=== PATIENT | male | born 1955 | race Caucasian/White ===

== ENCOUNTER 2018-05-02 04:14 | Emergency (ER) | payer OTHER ==
[2018-05-02 04:57] LABS: ADD MAN DIFF? NO
[2018-05-02 05:00] LABS: BASOPHIL # 0.2 10^3/ul (0.0-0.1); BASOPHILS % 2.1 % (0.0-2.0); EOSINOPHILS # 0.4 10^3/ul (0.0-0.5); EOSINOPHILS % 5.5 % (0.0-7.0); HEMATOCRIT 33.1 % (42.0-52.0); LYMPHOCYTES # 1.7 10^3/ul (0.8-2.9); LYMPHOCYTES % 22.7 % (15.0-51.0); MEAN CORPUSCULAR HEMOGLOBIN 27.6 pg (29.0-33.0); MEAN CORPUSCULAR HGB CONC 33.2 g/dl (32.0-37.0); MEAN PLATELET VOLUME 8.8 fl (7.4-10.4); MONOCYTE # 0.6 10^3/ul (0.3-0.9); MONOCYTES % 8.1 % (0.0-11.0); NEUTROPHIL # 4.6 10^3/ul (1.6-7.5); NEUTROPHILS % 61.2 % (39.0-77.0); PLATELET COUNT 304 10^3/UL (140-415); RED BLOOD COUNT 3.99 10^6/ul (4.70-6.10); RED CELL DISTRIBUTION WIDTH 14.5 % (11.5-14.5)
[2018-05-02 05:00] LABS: WHITE BLOOD COUNT 7.6 10^3/ul (4.8-10.8)
[2018-05-02] MEDS: NITROGLYCERIN 2% 1 GM OINT PKT TD (05:03)
[2018-05-02 05:19] LABS: ALANINE AMINOTRANSFERASE 30 IU/L (13-69); ALBUMIN 3.3 g/dl (3.3-4.9); ALKALINE PHOSPHATASE 112 IU/L (42-121); ANION GAP 15 (8-16); ASPARTATE AMINO TRANSFERASE 21 IU/L (15-46); BILIRUBIN,INDIRECT 0.4 mg/dl (0-1.1); BILIRUBIN,TOTAL 0.4 mg/dl (0.2-1.3); BLOOD UREA NITROGEN 42 mg/dl (7-20); CARBON DIOXIDE 21 mmol/L (21-31); CHLORIDE 114 mmol/L (97-110); CREATININE 2.06 mg/dl (0.61-1.24); GLUCOSE 191 mg/dl (70-220); INR 0.96; PROTIME 12.9 Sec (11.9-14.9); SODIUM 145 mmol/L (135-144); TOTAL PROTEIN 6.6 g/dl (6.1-8.1)
[2018-05-02 05:20] LABS: PARTIAL THROMBOPLASTIN TIME 30.3 Sec (23.0-35.0)
[2018-05-02 05:30] LABS: B-TYPE NATRIURETIC PEPTIDE 1200 PG/ML (0-125); TROPONIN-I 0.013 ng/ml (0.000-0.120)
[2018-05-02] MEDS: ASPIRIN 81 MG TAB PO (06:28)
== END 2018-05-02 09:20 | disposition short-term general hospital (02) ==
LOC: E/R 04:14
DX: R07.9 Chest pain, unspecified (principal); I10 Essential (primary) hypertension; I25.10 Atherosclerotic heart disease of native coronary artery without angina pectoris; E11.9 Type 2 diabetes mellitus without complications; Z79.01 Long term (current) use of anticoagulants; Z79.4 Long term (current) use of insulin
CPT/HCPCS: 36415; 71045; 80053; 82962; 83880; 84484; 85025; 85610; 85730; 93005; 99285-25

== ENCOUNTER 2018-09-11 06:45 | Inpatient (IN) | payer OTHER ==
[2018-09-11 08:40] LABS: ANION GAP 9 (5-13); CALCIUM 9.5 mg/dl (8.4-10.2); CARBON DIOXIDE 23 mmol/L (21-31); CHLORIDE 107 mmol/L (97-110); Estimated GFR 31 mL/min (>60); SODIUM 139 mmol/L (135-144)
[2018-09-11 08:42] LABS: BLOOD UREA NITROGEN 59 mg/dl (7-20); CREATININE 2.13 mg/dl (0.61-1.24); GLUCOSE 223 mg/dl (70-220); POTASSIUM 5.2 mmol/L (3.5-5.1)
[2018-09-11] MEDS ORDERED: LIDOCAINE 1% (MDV) 20 ML INJ (08:57)
[2018-09-11] MEDS ORDERED: ALBUTEROL HFA 8 GM INHALER (08:58)
[2018-09-11] MEDS ORDERED: NITROGLYCERIN (IC) 100 MCG/ML INJ (08:58)
[2018-09-11] MEDS ORDERED: HEPARIN 1000 UNITS/ML 10 ML INJ (08:58)
[2018-09-11] MEDS ORDERED: IODIXANOL LOCM 100 ML BTL (08:58)
[2018-09-11] MEDS ORDERED: VERAPAMIL 5 MG INJ (08:58)
[2018-09-11] MEDS ORDERED: MIDAZOLAM 1 MG/ML 2 ML INJ (08:58)
[2018-09-11] MEDS ORDERED: FENTAnyl 50 MCG/ML VIAL (08:58)
[2018-09-11] MEDS ORDERED: ZOLPIDEM 5 MG TAB PO (10:30)
[2018-09-11] MEDS ORDERED: ACETAMINOPHEN 325 MG TAB PO (10:30)
[2018-09-11] MEDS ORDERED: AL HYDROX/MG HYDROX/SIMETH 30 ML CUP PO (10:30)
[2018-09-11] MEDS ORDERED: ONDANSETRON 4 MG INJ IV (10:30)
[2018-09-11] MEDS ORDERED: morphine 2 MG INJ IV (10:30)
[2018-09-11] MEDS: SOD CHLORIDE 0.9% 1,000 ML IV (10:48)
[2018-09-11] MEDS ORDERED: GLUCAGON 1 MG INJ IM (13:30)
[2018-09-11] MEDS ORDERED: GLUCOSE GEL 15 GRAM TUBE BUCCAL (13:30)
[2018-09-11] MEDS ORDERED: DEXTROSE 50% 50 ML SYRINGE IV ×2 (13:30)
[2018-09-11] MEDS ORDERED: GLUCOSE GEL 15 GRAM TUBE PO ×2 (13:30)
[2018-09-11] MEDS: INSULIN ASPART [NOVOLOG] 3 ML PEN SC ×2 (18:27→20:16)
[2018-09-11] MEDS: ATORVASTATIN 20 MG TAB PO (20:10)
[2018-09-12] MEDS: ACCU-CHEK XX (01:32)
[2018-09-12] MEDS: INSULIN ASPART [NOVOLOG] 3 ML PEN SC ×5 (02:06→20:38)
[2018-09-12 05:29] LABS: ADD MAN DIFF? NO
[2018-09-12 05:44] LABS: WHITE BLOOD COUNT 7.8 10^3/ul (4.8-10.8)
[2018-09-12 05:44] LABS: BASOPHIL # 0.1 10^3/ul (0.0-0.1); BASOPHILS % 1.4 % (0.0-2.0); EOSINOPHILS # 0.3 10^3/ul (0.0-0.5); EOSINOPHILS % 4.1 % (0.0-7.0); HEMATOCRIT 28.3 % (42.0-52.0); HEMOGLOBIN 9.4 g/dl (14.0-18.0); LYMPHOCYTES # 1.1 10^3/ul (0.8-2.9); LYMPHOCYTES % 13.5 % (15.0-51.0); MEAN CORPUSCULAR HEMOGLOBIN 27.8 pg (29.0-33.0); MEAN CORPUSCULAR HGB CONC 33.2 g/dl (32.0-37.0); MEAN CORPUSCULAR VOLUME 83.7 fl (82.0-101.0); MEAN PLATELET VOLUME 9.6 fl (7.4-10.4); MONOCYTE # 0.7 10^3/ul (0.3-0.9); MONOCYTES % 8.6 % (0.0-11.0); NEUTROPHIL # 5.6 10^3/ul (1.6-7.5); NEUTROPHILS % 72.1 % (39.0-77.0); PLATELET COUNT 278 10^3/UL (140-415); RED BLOOD COUNT 3.38 10^6/ul (4.70-6.10); RED CELL DISTRIBUTION WIDTH 14.5 % (11.5-14.5)
[2018-09-12 06:21] LABS: ANION GAP 4 (5-13); BLOOD UREA NITROGEN 49 mg/dl (7-20); CALCIUM 8.8 mg/dl (8.4-10.2); CARBON DIOXIDE 23 mmol/L (21-31); CHLORIDE 114 mmol/L (97-110); CREATININE 1.97 mg/dl (0.61-1.24); Estimated GFR 34 mL/min (>60); GLUCOSE 188 mg/dl (70-220); POTASSIUM 4.9 mmol/L (3.5-5.1); SODIUM 141 mmol/L (135-144)
[2018-09-12] MEDS: AMLODIPINE 10 MG TAB PO (08:21)
[2018-09-12] MEDS: ISOSORBIDE MONONITRATE(SR)30 MG TAB PO (08:21)
[2018-09-12] MEDS: ASPIRIN (EC) 81 MG TAB PO (08:22)
[2018-09-12] MEDS: ATORVASTATIN 20 MG TAB PO (20:37)
[2018-09-13] MEDS: ACCU-CHEK XX (01:09)
[2018-09-13] MEDS: INSULIN ASPART [NOVOLOG] 3 ML PEN SC ×4 (07:44→21:00)
[2018-09-13] MEDS: ISOSORBIDE MONONITRATE(SR)30 MG TAB PO (08:15)
[2018-09-13] MEDS: ASPIRIN (EC) 81 MG TAB PO (08:15)
[2018-09-13] MEDS: AMLODIPINE 10 MG TAB PO (08:16)
[2018-09-13] MEDS ORDERED: NITROGLYCERIN (IC) 100 MCG/ML INJ (08:43)
[2018-09-13] MEDS ORDERED: LIDOCAINE 1% (MDV) 20 ML INJ (08:43)
[2018-09-13] MEDS ORDERED: VERAPAMIL 5 MG INJ ×2 (08:43→11:32)
[2018-09-13] MEDS ORDERED: HEPARIN 1000 UNITS/ML 10 ML INJ (08:43)
[2018-09-13] MEDS ORDERED: IODIXANOL LOCM 100 ML BTL (08:43)
[2018-09-13] MEDS ORDERED: MIDAZOLAM 1 MG/ML 2 ML INJ (08:43)
[2018-09-13] MEDS ORDERED: FENTAnyl 50 MCG/ML VIAL (08:43)
[2018-09-13] MEDS ORDERED: SOD CHLORIDE 0.9% 500 ML (08:44)
[2018-09-13 09:48] LABS: ANION GAP 9 (5-13); BLOOD UREA NITROGEN 54 mg/dl (7-20); CALCIUM 9.1 mg/dl (8.4-10.2); CARBON DIOXIDE 22 mmol/L (21-31); CHLORIDE 111 mmol/L (97-110); CREATININE 2.23 mg/dl (0.61-1.24); Estimated GFR 30 mL/min (>60); GLUCOSE 174 mg/dl (70-220); SODIUM 142 mmol/L (135-144)
[2018-09-13] MEDS ORDERED: DOPamine-D5W 1.6 MG/ML 250 ML (10:44)
[2018-09-13] MEDS ORDERED: CLOPIDOGREL 300 MG TAB (11:11)
[2018-09-13] MEDS ORDERED: ASPIRIN 325 MG TAB (11:11)
[2018-09-13] MEDS ORDERED: BIVALIRUDIN 250MG /NS 50 ML 50 ML IVPB (11:32)
[2018-09-13] MEDS ORDERED: ACETAMINOPHEN 325 MG TAB PO (12:00)
[2018-09-13] MEDS ORDERED: AL HYDROX/MG HYDROX/SIMETH 30 ML CUP PO (12:00)
[2018-09-13] MEDS: OXYCODONE/ACETAMINOPHEN (5/325) TAB PO (12:53)
[2018-09-13] MEDS: SOD CHLORIDE 0.9% 1,000 ML IV (13:06)
[2018-09-13] MEDS ORDERED: ATROPINE 1 MG/10 ML SYRINGE IV (18:00)
[2018-09-13] MEDS: ATORVASTATIN 20 MG TAB PO (21:34)
[2018-09-14] MEDS: ACCU-CHEK XX (02:00)
[2018-09-14 05:12] LABS: ADD MAN DIFF? NO
[2018-09-14 05:20] LABS: BASOPHIL # 0.1 10^3/ul (0.0-0.1); BASOPHILS % 1.3 % (0.0-2.0); EOSINOPHILS # 0.3 10^3/ul (0.0-0.5); EOSINOPHILS % 4.2 % (0.0-7.0); HEMATOCRIT 25.9 % (42.0-52.0); HEMOGLOBIN 8.3 g/dl (14.0-18.0); LYMPHOCYTES # 1.1 10^3/ul (0.8-2.9); LYMPHOCYTES % 15.4 % (15.0-51.0); MEAN CORPUSCULAR HEMOGLOBIN 27.4 pg (29.0-33.0); MEAN CORPUSCULAR VOLUME 85.5 fl (82.0-101.0); MEAN PLATELET VOLUME 9.6 fl (7.4-10.4); MONOCYTE # 0.7 10^3/ul (0.3-0.9); MONOCYTES % 9.5 % (0.0-11.0); NEUTROPHIL # 4.8 10^3/ul (1.6-7.5); NEUTROPHILS % 69.2 % (39.0-77.0); PLATELET COUNT 243 10^3/UL (140-415); RED BLOOD COUNT 3.03 10^6/ul (4.70-6.10); RED CELL DISTRIBUTION WIDTH 15.1 % (11.5-14.5)
[2018-09-14] MEDS: morphine 2 MG INJ IV ×2 (05:33→06:34)
[2018-09-14 05:43] LABS: ANION GAP 12 (5-13); BLOOD UREA NITROGEN 57 mg/dl (7-20); CALCIUM 8.6 mg/dl (8.4-10.2); CARBON DIOXIDE 21 mmol/L (21-31); CHLORIDE 109 mmol/L (97-110); CREATININE 2.31 mg/dl (0.61-1.24); Estimated GFR 29 mL/min (>60); GLUCOSE 222 mg/dl (70-220); POTASSIUM 4.9 mmol/L (3.5-5.1); SODIUM 142 mmol/L (135-144)
[2018-09-14] MEDS: ASPIRIN (EC) 81 MG TAB PO (08:53)
[2018-09-14] MEDS: ACETYLCYSTEINE 600 MG CAP PO ×2 (08:53→21:13)
[2018-09-14] MEDS: CLOPIDOGREL 75 MG TAB PO (08:53)
[2018-09-14] MEDS: INSULIN ASPART [NOVOLOG] 3 ML PEN SC ×4 (08:53→21:30)
[2018-09-14] MEDS: ISOSORBIDE MONONITRATE(SR)30 MG TAB PO ×2 (08:54→11:35)
[2018-09-14] MEDS: AMLODIPINE 10 MG TAB PO (08:54)
[2018-09-14] MEDS: OXYCODONE/ACETAMINOPHEN (5/325) TAB PO (08:55)
[2018-09-14] MEDS: NITROGLYCERIN (SL) 0.4 MG TAB SL (10:03)
[2018-09-14 10:31] LABS: CREATINE KINASE 44 IU/L (23-200)
[2018-09-14 10:44] LABS: CK INDEX 6.3
[2018-09-14 10:55] LABS: CK-MB 2.78 ng/ml (0.0-2.4)
[2018-09-14 10:57] LABS: TROPONIN-I 0.713 ng/ml (0.000-0.120)
[2018-09-14] MEDS: ONDANSETRON 4 MG INJ IV (14:49)
[2018-09-14] MEDS: ATORVASTATIN 20 MG TAB PO (21:13)
[2018-09-15] MEDS: ACCU-CHEK XX (01:46)
[2018-09-15] MEDS: INSULIN ASPART [NOVOLOG] 3 ML PEN SC ×4 (07:54→20:16)
[2018-09-15] MEDS: AMLODIPINE 10 MG TAB PO (08:13)
[2018-09-15] MEDS: ACETYLCYSTEINE 600 MG CAP PO ×2 (08:14→20:14)
[2018-09-15] MEDS: ASPIRIN (EC) 81 MG TAB PO (08:14)
[2018-09-15] MEDS: ISOSORBIDE MONONITRATE(SR)30 MG TAB PO (08:14)
[2018-09-15] MEDS: CLOPIDOGREL 75 MG TAB PO (08:14)
[2018-09-15 09:04] LABS: ANION GAP 10 (5-13); BLOOD UREA NITROGEN 65 mg/dl (7-20); CALCIUM 8.9 mg/dl (8.4-10.2); CARBON DIOXIDE 19 mmol/L (21-31); CHLORIDE 110 mmol/L (97-110); CREATININE 2.69 mg/dl (0.61-1.24); Estimated GFR 24 mL/min (>60); GLUCOSE 143 mg/dl (70-220); SODIUM 139 mmol/L (135-144)
[2018-09-15 09:27] LABS: POTASSIUM 6.3 mmol/L (3.5-5.1)
[2018-09-15] MEDS: FUROSEMIDE 20 MG INJ IV (10:26)
[2018-09-15] MEDS: SODIUM POLYSTYRENE 15 GM KIT (POWDER + SORBITOL) PO (10:26)
[2018-09-15 15:31] LABS: ANION GAP 11 (5-13); BLOOD UREA NITROGEN 67 mg/dl (7-20); CALCIUM 9.2 mg/dl (8.4-10.2); CARBON DIOXIDE 19 mmol/L (21-31); CHLORIDE 110 mmol/L (97-110); CREATININE 3.01 mg/dl (0.61-1.24); Estimated GFR 21 mL/min (>60); GLUCOSE 147 mg/dl (70-220); POTASSIUM 5.2 mmol/L (3.5-5.1); SODIUM 140 mmol/L (135-144)
[2018-09-15] MEDS: CITRIC ACID/NA CITRATE 30 ML CUP PO ×2 (17:14→20:14)
[2018-09-15] MEDS: ONDANSETRON 4 MG INJ IV (17:14)
[2018-09-15] MEDS: SOD CHLORIDE 0.9% 1,000 ML IV (17:14)
[2018-09-15] MEDS: ATORVASTATIN 20 MG TAB PO (20:23)
[2018-09-16] MEDS: ACCU-CHEK XX (02:00)
[2018-09-16] MEDS: SOD CHLORIDE 0.9% 1,000 ML IV (06:34)
[2018-09-16 06:42] LABS: ADD MAN DIFF? NO
[2018-09-16 06:50] LABS: ABNORMAL IP MESSAGE 1; BASOPHIL # 0.1 10^3/ul (0.0-0.1); BASOPHILS % 1.5 % (0.0-2.0); EOSINOPHILS # 0.3 10^3/ul (0.0-0.5); EOSINOPHILS % 3.2 % (0.0-7.0); HEMATOCRIT 26.4 % (42.0-52.0); HEMOGLOBIN 8.4 g/dl (14.0-18.0); LYMPHOCYTES # 0.6 10^3/ul (0.8-2.9); LYMPHOCYTES % 5.9 % (15.0-51.0); MEAN CORPUSCULAR HEMOGLOBIN 27.3 pg (29.0-33.0); MEAN CORPUSCULAR HGB CONC 31.8 g/dl (32.0-37.0); MEAN CORPUSCULAR VOLUME 85.7 fl (82.0-101.0); MEAN PLATELET VOLUME 9.6 fl (7.4-10.4); MONOCYTE # 0.6 10^3/ul (0.3-0.9); MONOCYTES % 6.5 % (0.0-11.0); NEUTROPHIL # 7.7 10^3/ul (1.6-7.5); NEUTROPHILS % 82.6 % (39.0-77.0); PLATELET COUNT 244 10^3/UL (140-415); POSITIVE DIFF @See below; RED BLOOD COUNT 3.08 10^6/ul (4.70-6.10)
[2018-09-16 06:50] LABS: WHITE BLOOD COUNT 9.4 10^3/ul (4.8-10.8)
[2018-09-16 07:57] LABS: ANION GAP 10 (5-13); BLOOD UREA NITROGEN 62 mg/dl (7-20); CALCIUM 8.9 mg/dl (8.4-10.2); CARBON DIOXIDE 20 mmol/L (21-31); CHLORIDE 111 mmol/L (97-110); CREATININE 2.92 mg/dl (0.61-1.24); Estimated GFR 22 mL/min (>60); GLUCOSE 146 mg/dl (70-220); POTASSIUM 4.7 mmol/L (3.5-5.1); SODIUM 141 mmol/L (135-144)
[2018-09-16 08:26] LABS: PHOSPHORUS 5.4 mg/dl (2.5-4.9)
[2018-09-16 08:26] LABS: MAGNESIUM 2.3 mg/dl (1.7-2.5)
[2018-09-16] MEDS: ISOSORBIDE MONONITRATE(SR)30 MG TAB PO (08:33)
[2018-09-16] MEDS: ASPIRIN (EC) 81 MG TAB PO (08:34)
[2018-09-16] MEDS: ACETYLCYSTEINE 600 MG CAP PO (08:34)
[2018-09-16] MEDS: CLOPIDOGREL 75 MG TAB PO (08:34)
[2018-09-16] MEDS: CITRIC ACID/NA CITRATE 30 ML CUP PO (08:34)
[2018-09-16] MEDS: AMLODIPINE 10 MG TAB PO (08:34)
[2018-09-16] MEDS: ONDANSETRON 4 MG INJ IV (08:49)
[2018-09-16] MEDS: INSULIN ASPART [NOVOLOG] 3 ML PEN SC ×2 (08:53→11:44)
== END 2018-09-16 13:55 | disposition home or self-care (01) | DRG 246 ==
LOC: ICU 09-13 11:51 → TEL 09-14 14:41 → SDS 06:45 → REC 10:20 → ICU 11:25
PROVIDERS: Internal Medicine
PROC: 027037Z Dilation of Coronary Artery, One Artery with Four or More Drug-eluting Intraluminal Devices, Percutaneous Approach (ICD-10-PCS; principal; 2018-09-11 08:50)
PROC: 4A023N7 Measurement of Cardiac Sampling and Pressure, Left Heart, Percutaneous Approach (ICD-10-PCS; 2018-09-11 08:50)
PROC: B211YZZ Fluoroscopy of Multiple Coronary Arteries using Other Contrast (ICD-10-PCS; 2018-09-11 08:50)
PROC: 4A023N7 Measurement of Cardiac Sampling and Pressure, Left Heart, Percutaneous Approach (ICD-10-PCS; 2018-09-11 08:50)
PROC: B211YZZ Fluoroscopy of Multiple Coronary Arteries using Other Contrast (ICD-10-PCS; 2018-09-11 08:50)
DX: I25.119 Atherosclerotic heart disease of native coronary artery with unspecified angina pectoris (principal); N17.0 Acute kidney failure with tubular necrosis; I50.23 Acute on chronic systolic (congestive) heart failure; I24.9 Acute ischemic heart disease, unspecified; I13.0 Hypertensive heart and chronic kidney disease with heart failure and stage 1 through stage 4 chronic kidney disease, or unspecified chronic kidney disease; E11.22 Type 2 diabetes mellitus with diabetic chronic kidney disease; N18.3 Chronic kidney disease, stage 3 (moderate); E78.5 Hyperlipidemia, unspecified; E87.5 Hyperkalemia; I42.9 Cardiomyopathy, unspecified; Z95.5 Presence of coronary angioplasty implant and graft
CPT/HCPCS: 80048; 82550; 82553; 82962; 83735; 84100; 84484; 85025; 87081; 93005; 93306; 93458

== ENCOUNTER 2018-09-17 06:30 | Observation (INO) | payer OTHER ==
[2018-09-17 06:55] LABS: ADD MAN DIFF? NO
[2018-09-17 06:57] LABS: BASOPHIL # 0.1 10^3/ul (0.0-0.1); EOSINOPHILS # 0.4 10^3/ul (0.0-0.5); EOSINOPHILS % 4.2 % (0.0-7.0); HEMOGLOBIN 9.8 g/dl (14.0-18.0); LYMPHOCYTES % 9.7 % (15.0-51.0); MEAN CORPUSCULAR HEMOGLOBIN 27.7 pg (29.0-33.0); MEAN CORPUSCULAR HGB CONC 32.7 g/dl (32.0-37.0); MEAN CORPUSCULAR VOLUME 84.7 fl (82.0-101.0); MEAN PLATELET VOLUME 9.6 fl (7.4-10.4); MONOCYTE # 0.7 10^3/ul (0.3-0.9); MONOCYTES % 7.4 % (0.0-11.0); NEUTROPHIL # 7.8 10^3/ul (1.6-7.5); NEUTROPHILS % 77.3 % (39.0-77.0); PLATELET COUNT 284 10^3/UL (140-415); RED BLOOD COUNT 3.54 10^6/ul (4.70-6.10); RED CELL DISTRIBUTION WIDTH 14.7 % (11.5-14.5)
[2018-09-17 06:57] LABS: WHITE BLOOD COUNT 10.1 10^3/ul (4.8-10.8)
[2018-09-17] MEDS: ASPIRIN 81 MG TAB PO (07:00)
[2018-09-17] MEDS: NITROGLYCERIN (SL) 0.4 MG TAB SL (07:00)
[2018-09-17] MEDS: morphine 4 MG/ML VIAL IV (07:01)
[2018-09-17] MEDS: NITROGLYCERIN 2% 1 GM OINT PKT TD (07:01)
[2018-09-17] MEDS: ONDANSETRON 4 MG INJ IV (07:01)
[2018-09-17 07:21] LABS: ANION GAP 15 (5-13); BLOOD UREA NITROGEN 62 mg/dl (7-20); CALCIUM 9.4 mg/dl (8.4-10.2); CARBON DIOXIDE 23 mmol/L (21-31); CHLORIDE 103 mmol/L (97-110); CREATININE 3.04 mg/dl (0.61-1.24); Estimated GFR 21 mL/min (>60); GLUCOSE 176 mg/dl (70-220); POTASSIUM 4.8 mmol/L (3.5-5.1); SODIUM 141 mmol/L (135-144)
[2018-09-17 07:39] LABS: TROPONIN-I 0.507 ng/ml (0.000-0.120)
[2018-09-17] MEDS ORDERED: ONDANSETRON 4 MG INJ IV ×2 (08:30→09:30)
[2018-09-17] MEDS ORDERED: ACETAMINOPHEN 325 MG TAB PO (08:30)
[2018-09-17] MEDS ORDERED: ISOSORBIDE MONONITRATE(SR)30 MG TAB PO (09:30)
[2018-09-17] MEDS ORDERED: PANTOPRAZOLE (EC) 40 MG TAB PO (09:30)
[2018-09-17] MEDS ORDERED: DOCUSATE SODIUM 100 MG CAP PO (09:30)
[2018-09-17] MEDS ORDERED: NITROGLYCERIN (SL) 0.4 MG TAB SL (09:30)
[2018-09-17] MEDS ORDERED: morphine 2 MG INJ IV (09:30)
[2018-09-17] MEDS ORDERED: BISACODYL 10 MG SUPP PR (09:30)
[2018-09-17] MEDS ORDERED: MAGNESIUM HYDROXIDE 30ML CUP PO (09:30)
[2018-09-17] MEDS ORDERED: NACL 0.9% 3 ML SYG IV (09:30)
[2018-09-17] MEDS ORDERED: GLUCOSE GEL 15 GRAM TUBE BUCCAL (10:00)
[2018-09-17] MEDS ORDERED: DEXTROSE 50% 50 ML SYRINGE IV ×2 (10:00)
[2018-09-17] MEDS ORDERED: GLUCOSE GEL 15 GRAM TUBE PO ×2 (10:00)
[2018-09-17] MEDS ORDERED: GLUCAGON 1 MG INJ IM (10:00)
[2018-09-17] MEDS ORDERED: hydrALAzine 20 MG INJ IV (10:00)
[2018-09-17] MEDS: CITRIC ACID/NA CITRATE 30 ML CUP PO ×2 (10:11→22:17)
[2018-09-17] MEDS: AMLODIPINE 10 MG TAB PO (10:12)
[2018-09-17] MEDS: ISOSORBIDE MONONITRATE(SR)60 MG TAB PO (10:12)
[2018-09-17] MEDS: ACETYLCYSTEINE 600 MG CAP PO ×2 (10:13→22:18)
[2018-09-17] MEDS: INSULIN GLARGINE [LANTus] (100 UNITS/ML) SYG SC (10:14)
[2018-09-17] MEDS: FAMOTIDINE 20 MG TAB PO (10:15)
[2018-09-17] MEDS: CLOPIDOGREL 75 MG TAB PO (10:15)
[2018-09-17 10:19] LABS: HEMOGLOBIN A1C 6.9 % (0-5.9)
[2018-09-17 10:22] LABS: B-TYPE NATRIURETIC PEPTIDE 6070 PG/ML (0-125)
[2018-09-17] MEDS: INSULIN ASPART [NOVOLOG] 3 ML PEN SC ×5 (12:19→22:33)
[2018-09-17] MEDS: BUMETANIDE 6 MG in DEXTROSE 5% 36 ML IV (12:55)
[2018-09-17 12:58] LABS: CREATINE KINASE 53 IU/L (23-200)
[2018-09-17 13:10] LABS: CK INDEX 5.4
[2018-09-17 13:19] LABS: CK-MB 2.88 ng/ml (0.0-2.4); TROPONIN-I 0.439 ng/ml (0.000-0.120)
[2018-09-17] MEDS: HEPARIN 5,000 UNIT/1 ML VIAL SC ×2 (14:25→22:37)
[2018-09-17 16:29] LABS: LACTIC ACID 0.7 mmol/L (0.5-2.0)
[2018-09-17 19:03] LABS: CREATINE KINASE 50 IU/L (23-200)
[2018-09-17 19:16] LABS: CK INDEX 5.4
[2018-09-17 19:20] LABS: CK-MB 2.68 ng/ml (0.0-2.4); TROPONIN-I 0.527 ng/ml (0.000-0.120)
[2018-09-17] MEDS: BUMETANIDE 1 MG INJ IV (22:16)
[2018-09-17] MEDS: DOCUSATE SODIUM 250 MG CAP PO (22:17)
[2018-09-17] MEDS: ATORVASTATIN 20 MG TAB PO (22:18)
[2018-09-18] MEDS: ACCU-CHEK XX (01:22)
[2018-09-18] MEDS: BUMETANIDE 1 MG INJ IV ×2 (06:19→18:09)
[2018-09-18] MEDS: HEPARIN 5,000 UNIT/1 ML VIAL SC ×3 (06:26→21:22)
[2018-09-18 06:54] LABS: WHITE BLOOD COUNT 7.1 10^3/ul (4.8-10.8)
[2018-09-18 06:54] LABS: ADD MAN DIFF? NO; BASOPHIL # 0.1 10^3/ul (0.0-0.1); BASOPHILS % 1.7 % (0.0-2.0); EOSINOPHILS # 0.3 10^3/ul (0.0-0.5); EOSINOPHILS % 4.5 % (0.0-7.0); HEMATOCRIT 24.4 % (42.0-52.0); HEMOGLOBIN 7.9 g/dl (14.0-18.0); LYMPHOCYTES % 14.6 % (15.0-51.0); MEAN CORPUSCULAR HEMOGLOBIN 27.2 pg (29.0-33.0); MEAN CORPUSCULAR HGB CONC 32.4 g/dl (32.0-37.0); MEAN CORPUSCULAR VOLUME 84.1 fl (82.0-101.0); MEAN PLATELET VOLUME 9.8 fl (7.4-10.4); MONOCYTE # 0.7 10^3/ul (0.3-0.9); MONOCYTES % 9.2 % (0.0-11.0); NEUTROPHILS % 69.9 % (39.0-77.0); PLATELET COUNT 229 10^3/UL (140-415); RED CELL DISTRIBUTION WIDTH 14.7 % (11.5-14.5)
[2018-09-18 07:07] LABS: PARTIAL THROMBOPLASTIN TIME 36.2 Sec (23.0-35.0)
[2018-09-18 07:10] LABS: INR 1.01; PROTIME 13.4 Sec (11.9-14.9)
[2018-09-18 07:18] LABS: IRON 20 ug/dl (35-150)
[2018-09-18 07:27] LABS: % IRON SATURATION 7 % SAT (22-52); TOTAL IRON BINDING CAPACITY 283 ug/dl (241-421)
[2018-09-18 07:30] LABS: ANION GAP 15 (5-13); BLOOD UREA NITROGEN 65 mg/dl (7-20); CALCIUM 8.8 mg/dl (8.4-10.2); CARBON DIOXIDE 25 mmol/L (21-31); CHLORIDE 101 mmol/L (97-110); CREATININE 3.03 mg/dl (0.61-1.24); Estimated GFR 21 mL/min (>60); GLUCOSE 136 mg/dl (70-220); MAGNESIUM 2.2 mg/dl (1.7-2.5); POTASSIUM 4.2 mmol/L (3.5-5.1); SODIUM 141 mmol/L (135-144)
[2018-09-18 07:54] LABS: FERRITIN 83.7 ng/ml (11.1-264.0)
[2018-09-18] MEDS: INSULIN ASPART [NOVOLOG] 3 ML PEN SC ×7 (08:06→20:19)
[2018-09-18] MEDS: ASPIRIN (EC) 81 MG TAB PO (09:01)
[2018-09-18] MEDS: CLOPIDOGREL 75 MG TAB PO (09:01)
[2018-09-18] MEDS: ACETYLCYSTEINE 600 MG CAP PO ×2 (09:01→20:16)
[2018-09-18] MEDS: AMLODIPINE 10 MG TAB PO (09:02)
[2018-09-18] MEDS: ISOSORBIDE MONONITRATE(SR)60 MG TAB PO (09:02)
[2018-09-18] MEDS: DOCUSATE SODIUM 250 MG CAP PO ×2 (09:02→20:19)
[2018-09-18] MEDS: FAMOTIDINE 20 MG TAB PO (09:03)
[2018-09-18] MEDS: CITRIC ACID/NA CITRATE 30 ML CUP PO ×2 (09:04→21:17)
[2018-09-18] MEDS: INSULIN GLARGINE [LANTus] (100 UNITS/ML) SYG SC (10:14)
[2018-09-18] MEDS: LIDOCAINE 1% (MPF) 5 ML VIAL (12:44)
[2018-09-18 13:09] LABS: FLD MN% 78.8 %; FLD PMN% 21.2 %; FLD RBC 8000 /uL; FLD WBC 151 /cmm
[2018-09-18] MEDS: SOD FERRIC GLUC COMPLX 125 MG in SOD CHLORIDE 0.9% 100 ML IVPB (13:34)
[2018-09-18 13:53] LABS: FLD TYPE PLEURAL
[2018-09-18 13:53] LABS: FLD CLARITY HAZY; FLD COLOR YELLOW
[2018-09-18 13:58] LABS: FLUID LD 180 U/L
[2018-09-18 13:59] LABS: FLUID TYPE PLEURAL FLUID
[2018-09-18 14:50] LABS: CREATINE KINASE 35 IU/L (23-200)
[2018-09-18 15:01] LABS: CK INDEX 3.1
[2018-09-18] MEDS: HYDROCODONE/APAP (5/325) TAB PO (18:13)
[2018-09-18] MEDS: ATORVASTATIN 20 MG TAB PO (20:17)
[2018-09-19] MEDS: ACCU-CHEK XX (02:00)
[2018-09-19] MEDS: ACETAMINOPHEN 325 MG TAB PO (02:52)
[2018-09-19] MEDS: BUMETANIDE 1 MG INJ IV (06:21)
[2018-09-19] MEDS: HEPARIN 5,000 UNIT/1 ML VIAL SC (06:24)
[2018-09-19 07:45] LABS: CREATINE KINASE 29 IU/L (23-200)
[2018-09-19] MEDS: INSULIN ASPART [NOVOLOG] 3 ML PEN SC ×4 (07:55→11:52)
[2018-09-19 07:57] LABS: CK INDEX 3.6; CK-MB 1.03 ng/ml (0.0-2.4)
[2018-09-19] MEDS: ACETYLCYSTEINE 600 MG CAP PO (08:14)
[2018-09-19] MEDS: FAMOTIDINE 20 MG TAB PO (08:15)
[2018-09-19] MEDS: ASPIRIN (EC) 81 MG TAB PO (08:15)
[2018-09-19] MEDS: AMLODIPINE 10 MG TAB PO (08:16)
[2018-09-19] MEDS: CLOPIDOGREL 75 MG TAB PO (08:16)
[2018-09-19] MEDS: DOCUSATE SODIUM 250 MG CAP PO (08:16)
[2018-09-19] MEDS: CITRIC ACID/NA CITRATE 30 ML CUP PO (08:16)
[2018-09-19] MEDS: INSULIN GLARGINE [LANTus] (100 UNITS/ML) SYG SC (08:37)
[2018-09-19] MEDS: ISOSORBIDE MONONITRATE(SR)60 MG TAB PO (09:02)
[2018-09-19 09:16] LABS: ANION GAP 17 (5-13); BLOOD UREA NITROGEN 63 mg/dl (7-20); CALCIUM 8.8 mg/dl (8.4-10.2); CARBON DIOXIDE 24 mmol/L (21-31); CHLORIDE 100 mmol/L (97-110); Estimated GFR 24 mL/min (>60); GLUCOSE 92 mg/dl (70-220); SODIUM 141 mmol/L (135-144)
[2018-09-19] MEDS: SOD FERRIC GLUC COMPLX 125 MG in SOD CHLORIDE 0.9% 100 ML IVPB (12:25)
== END 2018-09-19 13:00 | disposition home or self-care (01) ==
LOC: E/R 06:30 → TEL 14:04
PROVIDERS: Internal Medicine
DX: R07.2 Precordial pain (principal); R07.9 Chest pain, unspecified; J90 Pleural effusion, not elsewhere classified; E78.5 Hyperlipidemia, unspecified; I25.10 Atherosclerotic heart disease of native coronary artery without angina pectoris; Z95.5 Presence of coronary angioplasty implant and graft; I13.0 Hypertensive heart and chronic kidney disease with heart failure and stage 1 through stage 4 chronic kidney disease, or unspecified chronic kidney disease; E11.22 Type 2 diabetes mellitus with diabetic chronic kidney disease; N18.4 Chronic kidney disease, stage 4 (severe); I50.43 Acute on chronic combined systolic (congestive) and diastolic (congestive) heart failure; N17.9 Acute kidney failure, unspecified; K21.9 Gastro-esophageal reflux disease without esophagitis; E11.51 Type 2 diabetes mellitus with diabetic peripheral angiopathy without gangrene; D63.1 Anemia in chronic kidney disease
CPT/HCPCS: 32555; 36415; 71045; 71250; 76604; 80048; 82042; 82306; 82550; 82553; 82607; 82728; 82962; 83036; 83540; 83605; 83615; 83735; 83880; 84145; 84484; 85025; 85610; 85730; 87070; 87102; 87116; 89051; 93005; 96374; 96375; 99285-25; G0378

== ENCOUNTER 2018-10-28 18:05 | Inpatient (IN) | payer OTHER ==
[2018-10-28 18:42] LABS: ADD MAN DIFF? NO
[2018-10-28 18:50] LABS: WHITE BLOOD COUNT 8.5 10^3/ul (4.8-10.8)
[2018-10-28 18:50] LABS: BASOPHIL # 0.1 10^3/ul (0.0-0.1); BASOPHILS % 0.9 % (0.0-2.0); EOSINOPHILS # 0.2 10^3/ul (0.0-0.5); EOSINOPHILS % 2.2 % (0.0-7.0); HEMATOCRIT 26.9 % (42.0-52.0); HEMOGLOBIN 8.8 g/dl (14.0-18.0); LYMPHOCYTES # 1.1 10^3/ul (0.8-2.9); LYMPHOCYTES % 13.5 % (15.0-51.0); MEAN CORPUSCULAR HEMOGLOBIN 26.3 pg (29.0-33.0); MEAN CORPUSCULAR HGB CONC 32.7 g/dl (32.0-37.0); MEAN CORPUSCULAR VOLUME 80.3 fl (82.0-101.0); MONOCYTE # 0.7 10^3/ul (0.3-0.9); MONOCYTES % 7.9 % (0.0-11.0); NEUTROPHIL # 6.4 10^3/ul (1.6-7.5); NEUTROPHILS % 75.1 % (39.0-77.0); PLATELET COUNT 301 10^3/UL (140-415); RED BLOOD COUNT 3.35 10^6/ul (4.70-6.10); RED CELL DISTRIBUTION WIDTH 13.9 % (11.5-14.5)
[2018-10-28 19:08] LABS: ANION GAP 16 (5-13); BLOOD UREA NITROGEN 64 mg/dl (7-20); CALCIUM 9.2 mg/dl (8.4-10.2); CARBON DIOXIDE 22 mmol/L (21-31); CHLORIDE 99 mmol/L (97-110); CREATININE 2.68 mg/dl (0.61-1.24); Estimated GFR 24 mL/min (>60); GLUCOSE 133 mg/dl (70-220); SODIUM 137 mmol/L (135-144)
[2018-10-28 19:20] LABS: TROPONIN-I 0.014 ng/ml (0.000-0.120)
[2018-10-28] MEDS: NITROGLYCERIN (SL) 0.4 MG TAB SL (19:32)
[2018-10-28] MEDS: BUMETANIDE 1 MG INJ IV ×3 (20:19→23:41)
[2018-10-28] MEDS ORDERED: ACETAMINOPHEN 325 MG TAB PO ×2 (20:30→22:00)
[2018-10-28 20:38] LABS: AADO2 Arterial 324.8 mmHg (7.0-24.0); Allen Test ACCEPTAB; Arterial Base Excess -4.4 mmol/L (-3.0-3); Arterial Blood Gas Oxygen Sat 99.3 mmHG (95.0-98.0); Arterial COHb 0.2 % (0.0-3.0); Arterial Fraction of Oxyhgb 98.7 % (93.0-99.0); Arterial HCO3 19.8 mmol/L (22.0-26.0); Arterial MetHb 0.4 % (0.0-1.5); Arterial pCO2 33.1 mmhg (35-45); Blood Gas IEPAP 15/5; MODE MASK - BIPAP; Site Left Radial
[2018-10-28] MEDS: morphine 2 MG INJ IV (21:31)
[2018-10-28] MEDS: NITROGLYCERIN 2% 1 GM OINT PKT TD (21:32)
[2018-10-28] MEDS: ONDANSETRON 4 MG INJ IV (21:33)
[2018-10-28] MEDS ORDERED: NITROGLYCERIN (SL) 0.4 MG TAB SL (22:00)
[2018-10-28] MEDS ORDERED: NACL 0.9% 3 ML SYG IV (22:00)
[2018-10-28] MEDS ORDERED: morphine 2 MG INJ IV (22:00)
[2018-10-28] MEDS ORDERED: LORAZEPAM 2 MG INJ IV (22:00)
[2018-10-28] MEDS ORDERED: ONDANSETRON 4 MG INJ IV (22:00)
[2018-10-28] MEDS ORDERED: ZOLPIDEM 5 MG TAB PO (22:00)
[2018-10-28] MEDS: DOCUSATE SODIUM 250 MG CAP PO (23:41)
[2018-10-29] MEDS: BUMETANIDE 1 MG INJ IV ×3 (01:40→17:43)
[2018-10-29 01:46] LABS: CREATINE KINASE 107 IU/L (23-200)
[2018-10-29 01:59] LABS: CK INDEX 1.8; CK-MB 1.92 ng/ml (0.0-2.4)
[2018-10-29] MEDS: NITROGLYCERIN 2% 1 GM OINT PKT TD ×5 (03:04→23:41)
[2018-10-29] MEDS: BUMETANIDE 6 MG in DEXTROSE 5% 36 ML IV (03:18)
[2018-10-29] MEDS: PANTOPRAZOLE (EC) 40 MG TAB PO (05:37)
[2018-10-29] MEDS ORDERED: NITROGLYCERIN 2% 1 GM OINT PKT TD (06:00)
[2018-10-29 07:18] LABS: ANION GAP 13 (5-13); BLOOD UREA NITROGEN 66 mg/dl (7-20); CALCIUM 9.1 mg/dl (8.4-10.2); CARBON DIOXIDE 23 mmol/L (21-31); CHLORIDE 101 mmol/L (97-110); CREATININE 2.77 mg/dl (0.61-1.24); Estimated GFR 23 mL/min (>60); GLUCOSE 106 mg/dl (70-220); POTASSIUM 4.5 mmol/L (3.5-5.1); SODIUM 137 mmol/L (135-144)
[2018-10-29 07:23] LABS: CREATINE KINASE 87 IU/L (23-200)
[2018-10-29 07:31] LABS: CK INDEX 1.8; CK-MB 1.59 ng/ml (0.0-2.4)
[2018-10-29 07:39] LABS: TROPONIN-I 0.528 ng/ml (0.000-0.120)
[2018-10-29] MEDS: ISOSORBIDE MONONITRATE(SR)30 MG TAB PO (08:53)
[2018-10-29] MEDS: AMLODIPINE 10 MG TAB PO (08:53)
[2018-10-29] MEDS: DOCUSATE SODIUM 250 MG CAP PO ×2 (08:54→20:53)
[2018-10-29] MEDS: ASPIRIN (EC) 81 MG TAB PO (08:54)
[2018-10-29] MEDS: CLOPIDOGREL 75 MG TAB PO (08:54)
[2018-10-29] MEDS: ENOXAPARIN 40 MG/0.4 ML SYG SC (08:59)
[2018-10-29 12:47] LABS: TROPONIN-I 0.461 ng/ml (0.000-0.120)
[2018-10-29] MEDS: ATORVASTATIN 20 MG TAB PO (20:53)
[2018-10-30] MEDS: BUMETANIDE 1 MG INJ IV (05:48)
[2018-10-30] MEDS: PANTOPRAZOLE (EC) 40 MG TAB PO (05:48)
[2018-10-30] MEDS: NITROGLYCERIN 2% 1 GM OINT PKT TD ×2 (05:48→12:00)
[2018-10-30 06:44] LABS: ANION GAP 10 (5-13); BLOOD UREA NITROGEN 73 mg/dl (7-20); CARBON DIOXIDE 26 mmol/L (21-31); CHLORIDE 103 mmol/L (97-110); CREATININE 3.16 mg/dl (0.61-1.24); Estimated GFR 20 mL/min (>60); GLUCOSE 135 mg/dl (70-220); POTASSIUM 4.5 mmol/L (3.5-5.1); SODIUM 139 mmol/L (135-144)
[2018-10-30] MEDS: CLOPIDOGREL 75 MG TAB PO (08:49)
[2018-10-30] MEDS: DOCUSATE SODIUM 250 MG CAP PO (08:49)
[2018-10-30] MEDS: ASPIRIN (EC) 81 MG TAB PO (08:49)
[2018-10-30] MEDS: AMLODIPINE 10 MG TAB PO (08:50)
[2018-10-30] MEDS: ISOSORBIDE MONONITRATE(SR)30 MG TAB PO (08:50)
[2018-10-30] MEDS: ENOXAPARIN 30 MG/0.3 ML SYG SC (08:54)
== END 2018-10-30 16:39 | disposition home health service (06) | DRG 291 ==
LOC: E/R 18:05 → TEL 20:20
PROC: 4A033R1 Measurement of Arterial Saturation, Peripheral, Percutaneous Approach (ICD-10-PCS; principal; 2018-10-28)
DX: I13.0 Hypertensive heart and chronic kidney disease with heart failure and stage 1 through stage 4 chronic kidney disease, or unspecified chronic kidney disease (principal); I50.23 Acute on chronic systolic (congestive) heart failure; N17.9 Acute kidney failure, unspecified; N18.3 Chronic kidney disease, stage 3 (moderate); I25.5 Ischemic cardiomyopathy; R74.8 Abnormal levels of other serum enzymes; D63.8 Anemia in other chronic diseases classified elsewhere; I25.10 Atherosclerotic heart disease of native coronary artery without angina pectoris; E78.5 Hyperlipidemia, unspecified; E11.51 Type 2 diabetes mellitus with diabetic peripheral angiopathy without gangrene; E11.22 Type 2 diabetes mellitus with diabetic chronic kidney disease; Z95.5 Presence of coronary angioplasty implant and graft; Z79.82 Long term (current) use of aspirin; Z79.84 Long term (current) use of oral hypoglycemic drugs
CPT/HCPCS: 36415; 36600; 71045; 80048; 82550; 82553; 82803; 82962; 84484; 85025; 93005; 94660; 96374; 99291-25

== ENCOUNTER 2018-12-16 20:57 | Observation (INO) | payer OTHER ==
[2018-12-16] MEDS: NITROGLYCERIN 2% 1 GM OINT PKT TD (23:25)
[2018-12-16 23:26] LABS: ADD MAN DIFF? NO
[2018-12-16 23:30] LABS: BASOPHIL # 0.1 10^3/ul (0.0-0.1); BASOPHILS % 1.7 % (0.0-2.0); EOSINOPHILS # 0.3 10^3/ul (0.0-0.5); EOSINOPHILS % 3.8 % (0.0-7.0); HEMATOCRIT 29.1 % (42.0-52.0); HEMOGLOBIN 9.2 g/dl (14.0-18.0); LYMPHOCYTES # 1.6 10^3/ul (0.8-2.9); MEAN CORPUSCULAR HEMOGLOBIN 25.6 pg (29.0-33.0); MEAN CORPUSCULAR HGB CONC 31.6 g/dl (32.0-37.0); MEAN CORPUSCULAR VOLUME 81.1 fl (82.0-101.0); MEAN PLATELET VOLUME 8.9 fl (7.4-10.4); MONOCYTE # 0.7 10^3/ul (0.3-0.9); MONOCYTES % 9.1 % (0.0-11.0); NEUTROPHIL # 5.4 10^3/ul (1.6-7.5); PLATELET COUNT 280 10^3/UL (140-415); RED BLOOD COUNT 3.59 10^6/ul (4.70-6.10); RED CELL DISTRIBUTION WIDTH 15.1 % (11.5-14.5)
[2018-12-16 23:30] LABS: WHITE BLOOD COUNT 8.2 10^3/ul (4.8-10.8)
[2018-12-16 23:47] LABS: ALANINE AMINOTRANSFERASE 33 IU/L (13-69); ALBUMIN 4.4 g/dl (3.3-4.9); ALBUMIN/GLOBULIN RATIO 1.33; ALKALINE PHOSPHATASE 111 IU/L (42-121); ANION GAP 9 (5-13); ASPARTATE AMINO TRANSFERASE 38 IU/L (15-46); BILIRUBIN,INDIRECT 0.8 mg/dl (0-1.1); BILIRUBIN,TOTAL 0.8 mg/dl (0.2-1.3); BLOOD UREA NITROGEN 52 mg/dl (7-20); CALCIUM 9.2 mg/dl (8.4-10.2); CARBON DIOXIDE 27 mmol/L (21-31); CHLORIDE 104 mmol/L (97-110); CREATININE 2.85 mg/dl (0.61-1.24); Estimated GFR 22 mL/min (>60); GLUCOSE 186 mg/dl (70-220); POTASSIUM 5.1 mmol/L (3.5-5.1); SODIUM 140 mmol/L (135-144); TOTAL PROTEIN 7.7 g/dl (6.1-8.1)
[2018-12-16 23:58] LABS: TROPONIN-I 0.027 ng/ml (0.000-0.120)
[2018-12-17 00:33] LABS: B-TYPE NATRIURETIC PEPTIDE 4210 PG/ML (0-125)
[2018-12-17] MEDS ORDERED: NITROGLYCERIN (SL) 0.4 MG TAB SL (02:00)
[2018-12-17 03:28] LABS: TROPONIN-I 0.031 ng/ml (0.000-0.120)
[2018-12-17] MEDS ORDERED: ACETAMINOPHEN 325 MG TAB PO ×2 (04:30→09:00)
[2018-12-17] MEDS ORDERED: ONDANSETRON 4 MG INJ IV (04:30)
[2018-12-17] MEDS ORDERED: HYDROCODONE/APAP (5/325) TAB PO (09:00)
[2018-12-17 10:18] LABS: TROPONIN-I 0.035 ng/ml (0.000-0.120)
[2018-12-17] MEDS: SOD CHLORIDE 0.9% 1,000 ML IV (14:02)
[2018-12-17] MEDS: CLOPIDOGREL 75 MG TAB PO (14:02)
[2018-12-17] MEDS: PANTOPRAZOLE (EC) 40 MG TAB PO (14:04)
[2018-12-17] MEDS: NA BICARBONATE 650 MG TAB PO ×2 (14:04→20:12)
[2018-12-17] MEDS: ISOSORBIDE MONONITRATE(SR)60 MG TAB PO (14:04)
[2018-12-17] MEDS: DOCUSATE SODIUM 250 MG CAP PO ×2 (14:04→20:12)
[2018-12-17] MEDS: ASPIRIN (EC) 81 MG TAB PO (14:05)
[2018-12-17] MEDS: AMLODIPINE 10 MG TAB PO (14:05)
[2018-12-17] MEDS: BUMETANIDE 1 MG TAB PO ×2 (14:17→18:26)
[2018-12-17] MEDS: ATORVASTATIN 20 MG TAB PO (20:12)
[2018-12-18] MEDS: PANTOPRAZOLE (EC) 40 MG TAB PO (05:51)
[2018-12-18] MEDS: BUMETANIDE 1 MG TAB PO (05:51)
[2018-12-18] MEDS: DOCUSATE SODIUM 250 MG CAP PO (08:14)
[2018-12-18] MEDS: ISOSORBIDE MONONITRATE(SR)60 MG TAB PO (08:14)
[2018-12-18] MEDS: ASPIRIN (EC) 81 MG TAB PO (08:14)
[2018-12-18] MEDS: NA BICARBONATE 650 MG TAB PO (08:14)
[2018-12-18] MEDS: AMLODIPINE 10 MG TAB PO (08:14)
[2018-12-18] MEDS: CLOPIDOGREL 75 MG TAB PO (08:14)
[2018-12-18] MEDS: REGADENOSON 0.4 MG/5 ML SYG (11:03)
[2018-12-18] MEDS ORDERED: RANOLAZINE (SR) 500 MG TAB PO (21:00)
== END 2018-12-18 13:11 | disposition home or self-care (01) ==
LOC: E/R 20:57 → TEL 12-17 04:02
DX: R07.9 Chest pain, unspecified (principal); I25.10 Atherosclerotic heart disease of native coronary artery without angina pectoris; Z95.5 Presence of coronary angioplasty implant and graft; I25.5 Ischemic cardiomyopathy; I13.0 Hypertensive heart and chronic kidney disease with heart failure and stage 1 through stage 4 chronic kidney disease, or unspecified chronic kidney disease; I50.9 Heart failure, unspecified; N18.4 Chronic kidney disease, stage 4 (severe); E78.5 Hyperlipidemia, unspecified; Z79.82 Long term (current) use of aspirin; Z79.02 Long term (current) use of antithrombotics/antiplatelets
CPT/HCPCS: 36415; 71045; 78452; 80053; 83880; 84484; 85025; 93005; 93017; 99285-25; G0378

== ENCOUNTER 2019-01-05 01:32 | Inpatient (IN) | payer OTHER, MEDICAID ==
[2019-01-05 02:40] LABS: ADD MAN DIFF? NO
[2019-01-05 02:42] LABS: WHITE BLOOD COUNT 6.3 10^3/ul (4.8-10.8)
[2019-01-05 02:43] LABS: BASOPHIL # 0.1 10^3/ul (0.0-0.1); BASOPHILS % 1.3 % (0.0-2.0); EOSINOPHILS # 0.4 10^3/ul (0.0-0.5); HEMATOCRIT 26.3 % (42.0-52.0); HEMOGLOBIN 8.2 g/dl (14.0-18.0); LYMPHOCYTES # 1.4 10^3/ul (0.8-2.9); LYMPHOCYTES % 21.6 % (15.0-51.0); MEAN CORPUSCULAR HEMOGLOBIN 25.5 pg (29.0-33.0); MEAN CORPUSCULAR HGB CONC 31.2 g/dl (32.0-37.0); MEAN CORPUSCULAR VOLUME 81.9 fl (82.0-101.0); MEAN PLATELET VOLUME 8.9 fl (7.4-10.4); MONOCYTE # 0.6 10^3/ul (0.3-0.9); NEUTROPHIL # 3.8 10^3/ul (1.6-7.5); NEUTROPHILS % 60.9 % (39.0-77.0); PLATELET COUNT 259 10^3/UL (140-415); RED BLOOD COUNT 3.21 10^6/ul (4.70-6.10)
[2019-01-05] MEDS: ASPIRIN 81 MG TAB PO ×2 (02:44→02:45)
[2019-01-05] MEDS: NITROGLYCERIN 2% 1 GM OINT PKT TD ×2 (02:45)
[2019-01-05 03:05] LABS: ANION GAP 9 (5-13); BLOOD UREA NITROGEN 59 mg/dl (7-20); CALCIUM 8.7 mg/dl (8.4-10.2); CARBON DIOXIDE 19 mmol/L (21-31); CHLORIDE 114 mmol/L (97-110); Estimated GFR 29 mL/min (>60); GLUCOSE 185 mg/dl (70-220); POTASSIUM 4.8 mmol/L (3.5-5.1); SODIUM 142 mmol/L (135-144)
[2019-01-05 03:16] LABS: TROPONIN-I 0.018 ng/ml (0.000-0.120)
[2019-01-05] MEDS ORDERED: ONDANSETRON 4 MG INJ IV (04:00)
[2019-01-05] MEDS ORDERED: ACETAMINOPHEN 325 MG TAB PO ×2 (04:00→04:30)
[2019-01-05] MEDS ORDERED: ALBUTEROL/IPRATROPIUM (NEB) 3 ML AMP HHN (04:30)
[2019-01-05] MEDS ORDERED: LORAZEPAM 2 MG INJ IV (04:30)
[2019-01-05] MEDS ORDERED: HYDROCODONE/APAP (5/325) TAB PO (04:30)
[2019-01-05] MEDS ORDERED: NACL 0.9% 3 ML SYG IV (04:30)
[2019-01-05] MEDS: SOD CHLORIDE 0.45% 1,000 ML IV ×2 (04:48→16:36)
[2019-01-05] MEDS ORDERED: GLUCOSE GEL 15 GRAM TUBE PO ×2 (05:00)
[2019-01-05] MEDS ORDERED: GLUCOSE GEL 15 GRAM TUBE BUCCAL (05:00)
[2019-01-05] MEDS ORDERED: DEXTROSE 50% 50 ML SYRINGE IV ×2 (05:00)
[2019-01-05] MEDS ORDERED: GLUCAGON 1 MG INJ IM (05:00)
[2019-01-05] MEDS: INSULIN ASPART [NOVOLOG] 3 ML PEN SC ×5 (05:25→20:47)
[2019-01-05 05:47] LABS: FREE T4 (FREE THYROXINE) 0.86 ng/dl (0.78-2.44)
[2019-01-05] MEDS: hydrALAzine 20 MG INJ IV (06:31)
[2019-01-05] MEDS: BUMETANIDE 1 MG TAB PO ×2 (06:37→16:36)
[2019-01-05] MEDS: NITROGLYCERIN (SL) 0.4 MG TAB SL (07:28)
[2019-01-05] MEDS ORDERED: INSULIN GLARGINE [LANtus] 3 ML PEN SC (09:00)
[2019-01-05] MEDS: FAMOTIDINE 20 MG TAB PO (10:10)
[2019-01-05] MEDS: ASPIRIN (EC) 325 MG TAB PO (10:10)
[2019-01-05] MEDS: CLOPIDOGREL 75 MG TAB PO (10:11)
[2019-01-05] MEDS: AMLODIPINE 10 MG TAB PO (10:11)
[2019-01-05] MEDS: HEPARIN 5,000 UNIT/1 ML VIAL SC ×2 (10:22→20:47)
[2019-01-05] MEDS: ISOSORBIDE MONONITRATE(SR)60 MG TAB PO (10:24)
[2019-01-05] MEDS: INSULIN GLARGINE [LANTus] (100 UNITS/ML) SYG SC (10:52)
[2019-01-05 11:06] LABS: CREATINE KINASE 52 IU/L (23-200)
[2019-01-05 11:18] LABS: CK INDEX 2.2; CK-MB 1.15 ng/ml (0.0-2.4)
[2019-01-05] MEDS ORDERED: hydrALAzine 20 MG INJ IV (12:30)
[2019-01-05 15:06] LABS: CREATINE KINASE 50 IU/L (23-200)
[2019-01-05 15:18] LABS: CK INDEX 3.1; CK-MB 1.56 ng/ml (0.0-2.4)
[2019-01-05 16:02] LABS: FERRITIN 46.4 ng/ml (11.1-264.0)
[2019-01-05 16:17] LABS: IRON 44 ug/dl (35-150)
[2019-01-05 16:26] LABS: % IRON SATURATION 14 % SAT (22-52); TOTAL IRON BINDING CAPACITY 314 ug/dl (241-421)
[2019-01-05 17:20] LABS: ADD UMIC YES; UR ASCORBIC ACID NEGATIVE (NEGATIVE); UR BILIRUBIN (Dip) NEGATIVE (NEGATIVE); UR BLOOD (Dip) 1+ mg/dL (NEGATIVE); UR CLARITY CLEAR (CLEAR); UR COLOR STRAW (YELLOW); UR GLUCOSE (Dip) 1+ mg/dL (NEGATIVE); UR KETONES (Dip) NEGATIVE (NEGATIVE); UR LEUKOCYTE ESTERASE (Dip) NEGATIVE Leu/ul (NEGATIVE); UR NITRITE (Dip) NEGATIVE (NEGATIVE); UR RBC 1 /HPF (0-5); UR SPECIFIC GRAVITY (Dip) 1.008 (1.003-1.030); UR TOTAL PROTEIN (Dip) NEGATIVE (NEGATIVE); UR UROBILINOGEN (Dip) NEGATIVE (NEGATIVE); UR WBC 0 /HPF (0-5)
[2019-01-05 17:28] LABS: CREATININE,URINE RANDOM 21.75 mg/dl (20-370)
[2019-01-05 17:28] LABS: SODIUM,URINE RANDOM 116 mmol/L (30-90)
[2019-01-05] MEDS: ATORVASTATIN 80 MG TAB PO (20:38)
[2019-01-05] MEDS: RANOLAZINE (SR) 500 MG TAB PO (20:38)
[2019-01-05] MEDS ORDERED: NON-FORMULARY/PATIENT OWN MED (Rosuvastatin Calcium* (Crestor*) 20 MG) PO (21:00)
[2019-01-06] MEDS: INSULIN ASPART [NOVOLOG] 3 ML PEN SC ×3 (01:00→08:53)
[2019-01-06 06:13] LABS: ADD MAN DIFF? NO
[2019-01-06 06:24] LABS: WHITE BLOOD COUNT 5.7 10^3/ul (4.8-10.8)
[2019-01-06 06:24] LABS: BASOPHIL # 0.1 10^3/ul (0.0-0.1); BASOPHILS % 1.4 % (0.0-2.0); EOSINOPHILS # 0.3 10^3/ul (0.0-0.5); HEMATOCRIT 25.8 % (42.0-52.0); HEMOGLOBIN 8.3 g/dl (14.0-18.0); LYMPHOCYTES # 1.3 10^3/ul (0.8-2.9); LYMPHOCYTES % 23.6 % (15.0-51.0); MEAN CORPUSCULAR HEMOGLOBIN 25.9 pg (29.0-33.0); MEAN CORPUSCULAR HGB CONC 32.2 g/dl (32.0-37.0); MEAN CORPUSCULAR VOLUME 80.6 fl (82.0-101.0); MEAN PLATELET VOLUME 8.9 fl (7.4-10.4); MONOCYTE # 0.6 10^3/ul (0.3-0.9); MONOCYTES % 9.7 % (0.0-11.0); NEUTROPHIL # 3.4 10^3/ul (1.6-7.5); NEUTROPHILS % 59.1 % (39.0-77.0); PLATELET COUNT 244 10^3/UL (140-415)
[2019-01-06] MEDS: BUMETANIDE 1 MG TAB PO ×2 (06:24→17:56)
[2019-01-06 07:03] LABS: ANION GAP 11 (5-13); BLOOD UREA NITROGEN 58 mg/dl (7-20); CALCIUM 8.4 mg/dl (8.4-10.2); CARBON DIOXIDE 18 mmol/L (21-31); CHLORIDE 111 mmol/L (97-110); CREATININE 2.34 mg/dl (0.61-1.24); Estimated GFR 28 mL/min (>60); GLUCOSE 91 mg/dl (70-220); PHOSPHORUS 5.5 mg/dl (2.5-4.9); POTASSIUM 4.2 mmol/L (3.5-5.1); SODIUM 140 mmol/L (135-144)
[2019-01-06 07:05] LABS: CHOL/HDL RATIO 3.4 RATIO; HDL CHOLESTEROL 32 mg/dl (30-78); LDL CHOLESTEROL,CALCULATED 62 mg/dl; TRIGLYCERIDES 77 mg/dl (0-149)
[2019-01-06 07:05] LABS: CHOLESTEROL 109 mg/dl (100-200)
[2019-01-06] MEDS: ONDANSETRON 4 MG INJ IV (08:32)
[2019-01-06] MEDS: morphine 2 MG INJ IV (08:38)
[2019-01-06 08:45] LABS: HEMOGLOBIN A1C 7.8 % (0-5.9)
[2019-01-06] MEDS: ISOSORBIDE MONONITRATE(SR)30 MG TAB PO (09:00)
[2019-01-06] MEDS: FAMOTIDINE 20 MG TAB PO (09:00)
[2019-01-06] MEDS: ASPIRIN (EC) 325 MG TAB PO (09:00)
[2019-01-06] MEDS: RANOLAZINE (SR) 500 MG TAB PO ×2 (09:00→20:18)
[2019-01-06] MEDS: AMLODIPINE 10 MG TAB PO (09:00)
[2019-01-06] MEDS: CLOPIDOGREL 75 MG TAB PO (09:00)
[2019-01-06] MEDS: HEPARIN 5,000 UNIT/1 ML VIAL SC ×2 (09:54→20:21)
[2019-01-06] MEDS: INSULIN GLARGINE [LANTus] (100 UNITS/ML) SYG SC (09:54)
[2019-01-06] MEDS: SOD CHLORIDE 0.45% 1,000 ML IV (10:10)
[2019-01-06] MEDS: Insulin NOVOLOG SS MILD Algorithm (SS with meals and bedtime) SC ×3 (11:30→20:16)
[2019-01-06] MEDS ORDERED: INSULIN ASPART [NOVOLOG] 3 ML PEN SC (17:30)
[2019-01-06] MEDS: ATORVASTATIN 80 MG TAB PO (20:18)
[2019-01-06] MEDS: DOCUSATE SODIUM 100 MG CAP PO (21:46)
[2019-01-07] MEDS: MAGNESIUM HYDROXIDE 30ML CUP PO (04:48)
[2019-01-07] MEDS: BUMETANIDE 1 MG TAB PO (04:48)
[2019-01-07 06:10] LABS: ADD MAN DIFF? NO
[2019-01-07] MEDS: SOD CHLORIDE 0.45% 1,000 ML IV (06:20)
[2019-01-07 06:35] LABS: WHITE BLOOD COUNT 5.8 10^3/ul (4.8-10.8)
[2019-01-07 06:36] LABS: BASOPHIL # 0.1 10^3/ul (0.0-0.1); EOSINOPHILS # 0.3 10^3/ul (0.0-0.5); EOSINOPHILS % 5.9 % (0.0-7.0); HEMATOCRIT 27.4 % (42.0-52.0); HEMOGLOBIN 8.7 g/dl (14.0-18.0); LYMPHOCYTES # 1.3 10^3/ul (0.8-2.9); MEAN CORPUSCULAR HEMOGLOBIN 25.6 pg (29.0-33.0); MEAN CORPUSCULAR HGB CONC 31.8 g/dl (32.0-37.0); MEAN CORPUSCULAR VOLUME 80.6 fl (82.0-101.0); MEAN PLATELET VOLUME 9.1 fl (7.4-10.4); MONOCYTE # 0.5 10^3/ul (0.3-0.9); MONOCYTES % 9.2 % (0.0-11.0); NEUTROPHIL # 3.6 10^3/ul (1.6-7.5); NEUTROPHILS % 61.6 % (39.0-77.0); PLATELET COUNT 241 10^3/UL (140-415); RED CELL DISTRIBUTION WIDTH 16.3 % (11.5-14.5)
[2019-01-07 06:53] LABS: ANION GAP 10 (5-13); BLOOD UREA NITROGEN 61 mg/dl (7-20); CALCIUM 8.7 mg/dl (8.4-10.2); CARBON DIOXIDE 22 mmol/L (21-31); CHLORIDE 107 mmol/L (97-110); Estimated GFR 23 mL/min (>60); GLUCOSE 154 mg/dl (70-220); POTASSIUM 4.6 mmol/L (3.5-5.1); SODIUM 139 mmol/L (135-144)
[2019-01-07 06:54] LABS: CREATINE KINASE 49 IU/L (23-200)
[2019-01-07 07:02] LABS: CK INDEX 1.8
[2019-01-07 07:07] LABS: TROPONIN-I 0.091 ng/ml (0.000-0.120)
[2019-01-07] MEDS: Insulin NOVOLOG SS MILD Algorithm (SS with meals and bedtime) SC ×4 (08:03→20:35)
[2019-01-07] MEDS: INSULIN GLARGINE [LANTus] (100 UNITS/ML) SYG SC (08:04)
[2019-01-07] MEDS: HEPARIN 5,000 UNIT/1 ML VIAL SC ×2 (08:04→20:37)
[2019-01-07] MEDS: ASPIRIN (EC) 325 MG TAB PO (08:04)
[2019-01-07] MEDS: ISOSORBIDE MONONITRATE(SR)30 MG TAB PO (08:05)
[2019-01-07] MEDS: FAMOTIDINE 20 MG TAB PO (08:06)
[2019-01-07] MEDS: CLOPIDOGREL 75 MG TAB PO (08:06)
[2019-01-07] MEDS: AMLODIPINE 10 MG TAB PO (08:06)
[2019-01-07] MEDS: DOCUSATE SODIUM 100 MG CAP PO (08:06)
[2019-01-07] MEDS: RANOLAZINE (SR) 500 MG TAB PO ×2 (08:07→20:34)
[2019-01-07] MEDS: ATORVASTATIN 80 MG TAB PO (20:34)
[2019-01-08] MEDS: MAGNESIUM HYDROXIDE 30ML CUP PO (05:05)
[2019-01-08 06:07] LABS: ADD MAN DIFF? NO
[2019-01-08 06:29] LABS: WHITE BLOOD COUNT 5.9 10^3/ul (4.8-10.8)
[2019-01-08 06:29] LABS: BASOPHIL # 0.1 10^3/ul (0.0-0.1); BASOPHILS % 0.8 % (0.0-2.0); EOSINOPHILS # 0.4 10^3/ul (0.0-0.5); EOSINOPHILS % 6.3 % (0.0-7.0); HEMATOCRIT 26.2 % (42.0-52.0); HEMOGLOBIN 8.5 g/dl (14.0-18.0); LYMPHOCYTES # 1.3 10^3/ul (0.8-2.9); LYMPHOCYTES % 22.3 % (15.0-51.0); MEAN CORPUSCULAR HEMOGLOBIN 26.3 pg (29.0-33.0); MEAN CORPUSCULAR HGB CONC 32.4 g/dl (32.0-37.0); MEAN CORPUSCULAR VOLUME 81.1 fl (82.0-101.0); MEAN PLATELET VOLUME 9.2 fl (7.4-10.4); MONOCYTE # 0.6 10^3/ul (0.3-0.9); MONOCYTES % 9.8 % (0.0-11.0); NEUTROPHIL # 3.6 10^3/ul (1.6-7.5); NEUTROPHILS % 60.5 % (39.0-77.0); PLATELET COUNT 239 10^3/UL (140-415); RED BLOOD COUNT 3.23 10^6/ul (4.70-6.10); RED CELL DISTRIBUTION WIDTH 16.3 % (11.5-14.5)
[2019-01-08 07:04] LABS: ANION GAP 11 (5-13); BLOOD UREA NITROGEN 73 mg/dl (7-20); CALCIUM 8.5 mg/dl (8.4-10.2); CARBON DIOXIDE 20 mmol/L (21-31); CHLORIDE 108 mmol/L (97-110); CREATININE 3.08 mg/dl (0.61-1.24); Estimated GFR 21 mL/min (>60); GLUCOSE 164 mg/dl (70-220); POTASSIUM 5.1 mmol/L (3.5-5.1); SODIUM 139 mmol/L (135-144)
[2019-01-08] MEDS: ASPIRIN (EC) 325 MG TAB PO (08:33)
[2019-01-08] MEDS: FAMOTIDINE 20 MG TAB PO (08:33)
[2019-01-08] MEDS: Insulin NOVOLOG SS MILD Algorithm (SS with meals and bedtime) SC ×3 (08:33→16:38)
[2019-01-08] MEDS: ISOSORBIDE MONONITRATE(SR)30 MG TAB PO (08:34)
[2019-01-08] MEDS: AMLODIPINE 10 MG TAB PO (08:34)
[2019-01-08] MEDS: CLOPIDOGREL 75 MG TAB PO (08:35)
[2019-01-08] MEDS: RANOLAZINE (SR) 500 MG TAB PO (08:35)
[2019-01-08] MEDS: SOD CHLORIDE 0.9% 1,000 ML IV (08:35)
[2019-01-08] MEDS: INSULIN GLARGINE [LANTus] (100 UNITS/ML) SYG SC (08:36)
[2019-01-08] MEDS: HEPARIN 5,000 UNIT/1 ML VIAL SC (08:36)
[2019-01-08 14:57] LABS: CREATININE, RANDOM URINE 25 mg/dL (20-320); MICROALBUMIN 20.2 mg/dL; MICROALBUMIN/CREATININE RATIO 808 (<30)
[2019-01-08 16:57] LABS: ANION GAP 6 (5-13); BLOOD UREA NITROGEN 69 mg/dl (7-20); CALCIUM 8.5 mg/dl (8.4-10.2); CARBON DIOXIDE 23 mmol/L (21-31); CHLORIDE 107 mmol/L (97-110); CREATININE 3.06 mg/dl (0.61-1.24); Estimated GFR 21 mL/min (>60); GLUCOSE 163 mg/dl (70-220); POTASSIUM 5.6 mmol/L (3.5-5.1); SODIUM 136 mmol/L (135-144)
[2019-01-08] MEDS: SODIUM POLYSTYRENE 15 GM KIT (POWDER + SORBITOL) PO (19:56)
== END 2019-01-08 20:11 | disposition home or self-care (01) | DRG 303 ==
LOC: E/R 01:32 → 6WM 03:53
DX: I25.110 Atherosclerotic heart disease of native coronary artery with unstable angina pectoris (principal); N18.4 Chronic kidney disease, stage 4 (severe); Z95.5 Presence of coronary angioplasty implant and graft; Z87.891 Personal history of nicotine dependence; I12.9 Hypertensive chronic kidney disease with stage 1 through stage 4 chronic kidney disease, or unspecified chronic kidney disease; I25.5 Ischemic cardiomyopathy; E11.9 Type 2 diabetes mellitus without complications; E78.5 Hyperlipidemia, unspecified; Z98.61 Coronary angioplasty status; I25.2 Old myocardial infarction; D50.9 Iron deficiency anemia, unspecified
CPT/HCPCS: 36415; 71045; 76775; 80048; 80061; 81001; 81003; 82043; 82550; 82553; 82728; 82962; 83036; 83540; 83735; 84100; 84155; 84300; 84439; 84443; 84484; 85025; 93005; 93306; 97161; 99285-25; G0378

== ENCOUNTER 2019-01-12 18:38 | Inpatient (IN) | payer OTHER, MEDICAID ==
[2019-01-12 19:14] LABS: ADD MAN DIFF? NO
[2019-01-12 19:17] LABS: WHITE BLOOD COUNT 7.1 10^3/ul (4.8-10.8)
[2019-01-12 19:17] LABS: BASOPHIL # 0.1 10^3/ul (0.0-0.1); BASOPHILS % 1.1 % (0.0-2.0); EOSINOPHILS # 0.4 10^3/ul (0.0-0.5); EOSINOPHILS % 4.9 % (0.0-7.0); HEMATOCRIT 26.3 % (42.0-52.0); HEMOGLOBIN 8.5 g/dl (14.0-18.0); LYMPHOCYTES # 1.3 10^3/ul (0.8-2.9); LYMPHOCYTES % 17.9 % (15.0-51.0); MEAN CORPUSCULAR HEMOGLOBIN 26.5 pg (29.0-33.0); MEAN CORPUSCULAR HGB CONC 32.3 g/dl (32.0-37.0); MEAN CORPUSCULAR VOLUME 81.9 fl (82.0-101.0); MEAN PLATELET VOLUME 8.4 fl (7.4-10.4); MONOCYTE # 0.6 10^3/ul (0.3-0.9); MONOCYTES % 8.9 % (0.0-11.0); NEUTROPHIL # 4.8 10^3/ul (1.6-7.5); NEUTROPHILS % 66.9 % (39.0-77.0); PLATELET COUNT 262 10^3/UL (140-415); RED BLOOD COUNT 3.21 10^6/ul (4.70-6.10); RED CELL DISTRIBUTION WIDTH 16.2 % (11.5-14.5)
[2019-01-12 19:37] LABS: ANION GAP 10 (5-13); BLOOD UREA NITROGEN 51 mg/dl (7-20); CALCIUM 8.6 mg/dl (8.4-10.2); CARBON DIOXIDE 21 mmol/L (21-31); CHLORIDE 107 mmol/L (97-110); Estimated GFR 27 mL/min (>60); GLUCOSE 163 mg/dl (70-220); SODIUM 138 mmol/L (135-144)
[2019-01-12 19:38] LABS: POTASSIUM 5.7 mmol/L (3.5-5.1)
[2019-01-12] MEDS: NITROGLYCERIN 2% 1 GM OINT PKT TD (19:39)
[2019-01-12] MEDS: ONDANSETRON 4 MG INJ IV (19:39)
[2019-01-12] MEDS: morphine 4 MG/ML VIAL IV (19:40)
[2019-01-12] MEDS: ASPIRIN 325 MG TAB PO (19:40)
[2019-01-12 19:48] LABS: TROPONIN-I 0.017 ng/ml (0.000-0.120)
[2019-01-12] MEDS ORDERED: NITROGLYCERIN 50 MG/D5W (PMX) 250 ML (20:43)
[2019-01-12] MEDS: NITROGLYCERIN 50 MG/D5W (PMX) 250 ML IV (20:47)
[2019-01-12] MEDS: FUROSEMIDE 20 MG INJ IV (20:48)
[2019-01-12 21:15] LABS: B-TYPE NATRIURETIC PEPTIDE 5400 PG/ML (0-125)
[2019-01-12] MEDS: METOLAZONE 2.5 MG TAB PO ×2 (21:30→22:43)
[2019-01-12] MEDS ORDERED: ACETAMINOPHEN 650MG/20.3ML CUP PO (21:30)
[2019-01-12] MEDS ORDERED: DOCUSATE SODIUM 100 MG CAP PO (21:30)
[2019-01-12] MEDS ORDERED: ALBUTEROL 0.083% (NEB) 2.5 MG/3 ML AMP NEB (21:30)
[2019-01-12] MEDS ORDERED: IPRATROPIUM (NEB) 0.5 MG/2.5 ML AMP NEB (21:30)
[2019-01-12] MEDS ORDERED: BISACODYL (EC) 5 MG TAB PO (21:30)
[2019-01-12] MEDS: HEPARIN 5,000 UNIT/1 ML VIAL SC (22:43)
[2019-01-13] MEDS ORDERED: GLUCOSE GEL 15 GRAM TUBE PO ×2 (01:30)
[2019-01-13] MEDS: BUMETANIDE 1 MG INJ IV ×2 (01:30→12:08)
[2019-01-13] MEDS ORDERED: GLUCOSE GEL 15 GRAM TUBE BUCCAL (01:30)
[2019-01-13] MEDS ORDERED: GLUCAGON 1 MG INJ IM (01:30)
[2019-01-13] MEDS ORDERED: DEXTROSE 50% 50 ML SYRINGE IV ×2 (01:30)
[2019-01-13 02:04] LABS: CREATINE KINASE 78 IU/L (23-200)
[2019-01-13 02:15] LABS: CK INDEX 3.1; CK-MB 2.39 ng/ml (0.0-2.4)
[2019-01-13] MEDS: ACCU-CHEK XX (02:54)
[2019-01-13 02:58] LABS: TROPONIN-I 0.354 ng/ml (0.000-0.120)
[2019-01-13] MEDS: hydrALAzine 20 MG INJ IV (02:59)
[2019-01-13 05:56] LABS: ADD MAN DIFF? NO
[2019-01-13 06:03] LABS: WHITE BLOOD COUNT 7.5 10^3/ul (4.8-10.8)
[2019-01-13 06:03] LABS: BASOPHIL # 0.1 10^3/ul (0.0-0.1); BASOPHILS % 0.9 % (0.0-2.0); EOSINOPHILS # 0.3 10^3/ul (0.0-0.5); EOSINOPHILS % 3.3 % (0.0-7.0); HEMOGLOBIN 7.9 g/dl (14.0-18.0); LYMPHOCYTES # 1.6 10^3/ul (0.8-2.9); LYMPHOCYTES % 21.1 % (15.0-51.0); MEAN CORPUSCULAR HGB CONC 32.9 g/dl (32.0-37.0); MEAN CORPUSCULAR VOLUME 81.9 fl (82.0-101.0); MONOCYTE # 0.7 10^3/ul (0.3-0.9); NEUTROPHIL # 4.9 10^3/ul (1.6-7.5); NEUTROPHILS % 65.4 % (39.0-77.0); PLATELET COUNT 249 10^3/UL (140-415); RED BLOOD COUNT 2.93 10^6/ul (4.70-6.10); RED CELL DISTRIBUTION WIDTH 16.3 % (11.5-14.5)
[2019-01-13] MEDS: PANTOPRAZOLE (EC) 40 MG TAB PO (06:24)
[2019-01-13 06:36] LABS: CK-MB 2.25 ng/ml (0.0-2.4)
[2019-01-13 06:42] LABS: CK INDEX 3.3; CREATINE KINASE 68 IU/L (23-200)
[2019-01-13] MEDS: HEPARIN 5,000 UNIT/1 ML VIAL SC ×3 (06:42→21:35)
[2019-01-13 06:56] LABS: ALANINE AMINOTRANSFERASE 25 IU/L (13-69); ALBUMIN 3.5 g/dl (3.3-4.9); ALBUMIN/GLOBULIN RATIO 1.16; ALKALINE PHOSPHATASE 85 IU/L (42-121); ANION GAP 7 (5-13); ASPARTATE AMINO TRANSFERASE 21 IU/L (15-46); BILIRUBIN,INDIRECT 0.6 mg/dl (0-1.1); BILIRUBIN,TOTAL 0.6 mg/dl (0.2-1.3); BLOOD UREA NITROGEN 54 mg/dl (7-20); CALCIUM 8.5 mg/dl (8.4-10.2); CARBON DIOXIDE 22 mmol/L (21-31); CHLORIDE 109 mmol/L (97-110); CREATININE 2.56 mg/dl (0.61-1.24); Estimated GFR 25 mL/min (>60); GLUCOSE 115 mg/dl (70-220); MAGNESIUM 2.7 mg/dl (1.7-2.5); POTASSIUM 5.6 mmol/L (3.5-5.1); SODIUM 138 mmol/L (135-144); TOTAL PROTEIN 6.5 g/dl (6.1-8.1)
[2019-01-13] MEDS: INSULIN ASPART [NOVOLOG] 3 ML PEN SC ×4 (07:55→21:34)
[2019-01-13] MEDS: morphine 2 MG INJ IV (08:19)
[2019-01-13] MEDS: CLOPIDOGREL 75 MG TAB PO (08:22)
[2019-01-13] MEDS: FAMOTIDINE 20 MG INJ IV ×2 (08:22→21:20)
[2019-01-13] MEDS: NA BICARBONATE 650 MG TAB PO ×2 (08:22→21:19)
[2019-01-13] MEDS: FERROUS SULFATE (EC) 325 MG TAB PO ×3 (08:22→21:20)
[2019-01-13] MEDS: INSULIN GLARGINE [LANTus] (100 UNITS/ML) SYG SC (08:42)
[2019-01-13] MEDS ORDERED: INSULIN GLARGINE [LANtus] 3 ML PEN SC (09:00)
[2019-01-13 11:37] LABS: CREATINE KINASE 63 IU/L (23-200)
[2019-01-13 11:51] LABS: CK INDEX 3.3
[2019-01-13 11:53] LABS: TROPONIN-I 0.587 ng/ml (0.000-0.120)
[2019-01-13] MEDS: SODIUM POLYSTYRENE 15 GM KIT (POWDER + SORBITOL) PO (14:26)
[2019-01-13 18:32] LABS: CREATINE KINASE 63 IU/L (23-200)
[2019-01-13 18:42] LABS: CK-MB 1.86 ng/ml (0.0-2.4)
[2019-01-13 18:43] LABS: TROPONIN-I 0.472 ng/ml (0.000-0.120)
[2019-01-13] MEDS ORDERED: NON-FORMULARY/PATIENT OWN MED (Rosuvastatin Calcium* (Crestor*) 20 MG) PO (21:00)
[2019-01-13] MEDS: ATORVASTATIN 80 MG TAB PO (21:20)
[2019-01-14] MEDS: hydrALAzine 20 MG INJ IV (01:43)
[2019-01-14] MEDS: ACCU-CHEK XX (01:46)
[2019-01-14] MEDS: PANTOPRAZOLE (EC) 40 MG TAB PO (05:59)
[2019-01-14] MEDS: HEPARIN 5,000 UNIT/1 ML VIAL SC ×2 (06:08→14:00)
[2019-01-14 06:22] LABS: ADD MAN DIFF? NO
[2019-01-14 06:30] LABS: BASOPHIL # 0.1 10^3/ul (0.0-0.1); BASOPHILS % 1.4 % (0.0-2.0); EOSINOPHILS # 0.3 10^3/ul (0.0-0.5); EOSINOPHILS % 3.6 % (0.0-7.0); HEMATOCRIT 27.4 % (42.0-52.0); HEMOGLOBIN 8.8 g/dl (14.0-18.0); LYMPHOCYTES # 1.4 10^3/ul (0.8-2.9); LYMPHOCYTES % 18.3 % (15.0-51.0); MEAN CORPUSCULAR HEMOGLOBIN 26.3 pg (29.0-33.0); MEAN CORPUSCULAR HGB CONC 32.1 g/dl (32.0-37.0); MEAN CORPUSCULAR VOLUME 81.8 fl (82.0-101.0); MEAN PLATELET VOLUME 9.1 fl (7.4-10.4); MONOCYTE # 0.7 10^3/ul (0.3-0.9); MONOCYTES % 8.8 % (0.0-11.0); NEUTROPHIL # 5.3 10^3/ul (1.6-7.5); NEUTROPHILS % 67.5 % (39.0-77.0); PLATELET COUNT 290 10^3/UL (140-415); RED BLOOD COUNT 3.35 10^6/ul (4.70-6.10); RED CELL DISTRIBUTION WIDTH 16.5 % (11.5-14.5)
[2019-01-14 06:30] LABS: WHITE BLOOD COUNT 7.9 10^3/ul (4.8-10.8)
[2019-01-14 07:01] LABS: IRON 34 ug/dl (35-150)
[2019-01-14 07:02] LABS: ALANINE AMINOTRANSFERASE 23 IU/L (13-69); ALBUMIN 3.7 g/dl (3.3-4.9); ALBUMIN/GLOBULIN RATIO 1.15; ALKALINE PHOSPHATASE 83 IU/L (42-121); ANION GAP 11 (5-13); ASPARTATE AMINO TRANSFERASE 20 IU/L (15-46); BILIRUBIN,INDIRECT 0.8 mg/dl (0-1.1); BILIRUBIN,TOTAL 0.8 mg/dl (0.2-1.3); BLOOD UREA NITROGEN 55 mg/dl (7-20); CALCIUM 8.8 mg/dl (8.4-10.2); CARBON DIOXIDE 23 mmol/L (21-31); CHLORIDE 107 mmol/L (97-110); CREATININE 2.91 mg/dl (0.61-1.24); Estimated GFR 22 mL/min (>60); GLUCOSE 76 mg/dl (70-220); POTASSIUM 4.8 mmol/L (3.5-5.1); SODIUM 141 mmol/L (135-144); TOTAL PROTEIN 6.9 g/dl (6.1-8.1)
[2019-01-14 07:07] LABS: MAGNESIUM 2.6 mg/dl (1.7-2.5)
[2019-01-14 07:07] LABS: PHOSPHORUS 5.6 mg/dl (2.5-4.9)
[2019-01-14 07:10] LABS: % IRON SATURATION 11 % SAT (22-52); TOTAL IRON BINDING CAPACITY 306 ug/dl (241-421)
[2019-01-14 07:25] LABS: FERRITIN 81.3 ng/ml (11.1-264.0)
[2019-01-14] MEDS: INSULIN ASPART [NOVOLOG] 3 ML PEN SC ×2 (07:55→11:50)
[2019-01-14] MEDS: NA BICARBONATE 650 MG TAB PO (08:49)
[2019-01-14] MEDS: FAMOTIDINE 20 MG INJ IV (08:49)
[2019-01-14] MEDS: FERROUS SULFATE (EC) 325 MG TAB PO ×2 (08:50→14:47)
[2019-01-14] MEDS: ISOSORBIDE MONONITRATE(SR)60 MG TAB PO (08:50)
[2019-01-14] MEDS: CLOPIDOGREL 75 MG TAB PO (08:50)
[2019-01-14] MEDS: INSULIN GLARGINE [LANTus] (100 UNITS/ML) SYG SC (09:43)
[2019-01-14] MEDS: ONDANSETRON 4 MG INJ IV (14:47)
== END 2019-01-14 15:49 | disposition home or self-care (01) | DRG 280 ==
LOC: E/R 18:38 → TEL 01-13 00:49
PROC: 5A09357 Assistance with Respiratory Ventilation, Less than 24 Consecutive Hours, Continuous Positive Airway Pressure (ICD-10-PCS; principal; 2019-01-12)
DX: I13.0 Hypertensive heart and chronic kidney disease with heart failure and stage 1 through stage 4 chronic kidney disease, or unspecified chronic kidney disease (principal); I50.23 Acute on chronic systolic (congestive) heart failure; I21.4 Non-ST elevation (NSTEMI) myocardial infarction; J96.00 Acute respiratory failure, unspecified whether with hypoxia or hypercapnia; N18.4 Chronic kidney disease, stage 4 (severe); N17.9 Acute kidney failure, unspecified; E87.2 Acidosis; E11.22 Type 2 diabetes mellitus with diabetic chronic kidney disease; R07.9 Chest pain, unspecified; Z95.5 Presence of coronary angioplasty implant and graft; I25.5 Ischemic cardiomyopathy; Z72.0 Tobacco use; D63.8 Anemia in other chronic diseases classified elsewhere
CPT/HCPCS: 36415; 71045; 80048; 80053; 82550; 82553; 82728; 82962; 83540; 83735; 83880; 84100; 84484; 85025; 87081; 93005; 94660; 96374; 96375; 99285-25

== ENCOUNTER 2019-02-12 18:22 | Inpatient (IN) | payer MEDICAID ==
[2019-02-12] MEDS ORDERED: NITROGLYCERIN (SL) 0.4 MG TAB SL (19:00)
[2019-02-12 19:11] LABS: ADD MAN DIFF? NO
[2019-02-12 19:14] LABS: WHITE BLOOD COUNT 7.5 10^3/ul (4.8-10.8)
[2019-02-12 19:14] LABS: BASOPHIL # 0.2 10^3/ul (0.0-0.1); EOSINOPHILS # 0.4 10^3/ul (0.0-0.5); EOSINOPHILS % 5.1 % (0.0-7.0); HEMATOCRIT 26.6 % (42.0-52.0); HEMOGLOBIN 8.7 g/dl (14.0-18.0); LYMPHOCYTES # 1.6 10^3/ul (0.8-2.9); LYMPHOCYTES % 20.9 % (15.0-51.0); MEAN CORPUSCULAR HEMOGLOBIN 27.4 pg (29.0-33.0); MEAN CORPUSCULAR HGB CONC 32.7 g/dl (32.0-37.0); MEAN CORPUSCULAR VOLUME 83.6 fl (82.0-101.0); MEAN PLATELET VOLUME 8.8 fl (7.4-10.4); MONOCYTE # 0.6 10^3/ul (0.3-0.9); MONOCYTES % 7.3 % (0.0-11.0); NEUTROPHIL # 4.8 10^3/ul (1.6-7.5); NEUTROPHILS % 64.4 % (39.0-77.0); PLATELET COUNT 278 10^3/UL (140-415); RED BLOOD COUNT 3.18 10^6/ul (4.70-6.10); RED CELL DISTRIBUTION WIDTH 16.7 % (11.5-14.5)
[2019-02-12] MEDS: ASPIRIN 81 MG TAB PO (19:18)
[2019-02-12] MEDS: NITROGLYCERIN 2% 1 GM OINT PKT TD (19:18)
[2019-02-12 19:31] LABS: ANION GAP 12 (5-13); BLOOD UREA NITROGEN 67 mg/dl (7-20); CALCIUM 8.8 mg/dl (8.4-10.2); CARBON DIOXIDE 22 mmol/L (21-31); CHLORIDE 109 mmol/L (97-110); CREATININE 2.91 mg/dl (0.61-1.24); Estimated GFR 22 mL/min (>60); GLUCOSE 176 mg/dl (70-220); SODIUM 143 mmol/L (135-144)
[2019-02-12 19:46] LABS: POTASSIUM 5.6 mmol/L (3.5-5.1)
[2019-02-12] MEDS ORDERED: ACETAMINOPHEN 325 MG TAB PO ×2 (20:00→20:30)
[2019-02-12] MEDS ORDERED: ONDANSETRON 4 MG INJ IV ×2 (20:00→20:30)
[2019-02-12] MEDS ORDERED: NACL 0.9% 3 ML SYG IV (20:30)
[2019-02-12] MEDS ORDERED: ALBUTEROL/IPRATROPIUM (NEB) 3 ML AMP HHN (20:30)
[2019-02-12] MEDS: LABETALOL HCL 20MG INJ IV (20:30)
[2019-02-12] MEDS ORDERED: NON-FORMULARY/PATIENT OWN MED (Rosuvastatin Calcium* (Crestor*) 20 MG) PO (21:00)
[2019-02-13] MEDS: BUMETANIDE 1 MG TAB PO ×3 (00:59→17:13)
[2019-02-13] MEDS: FERROUS SULFATE (EC) 325 MG TAB PO ×4 (01:00→20:56)
[2019-02-13] MEDS: ATORVASTATIN 80 MG TAB PO ×2 (01:01→20:56)
[2019-02-13] MEDS: ENOXAPARIN 60 MG/0.6 ML SYG SC (01:08)
[2019-02-13 01:27] LABS: CREATINE KINASE 92 IU/L (23-200)
[2019-02-13 01:39] LABS: CK INDEX 3.2
[2019-02-13 01:40] LABS: CK-MB 2.91 ng/ml (0.0-2.4)
[2019-02-13 07:02] LABS: ADD MAN DIFF? NO
[2019-02-13 07:04] LABS: BASOPHIL # 0.1 10^3/ul (0.0-0.1); BASOPHILS % 1.9 % (0.0-2.0); EOSINOPHILS # 0.4 10^3/ul (0.0-0.5); EOSINOPHILS % 5.9 % (0.0-7.0); HEMATOCRIT 27.5 % (42.0-52.0); HEMOGLOBIN 8.6 g/dl (14.0-18.0); LYMPHOCYTES # 1.4 10^3/ul (0.8-2.9); LYMPHOCYTES % 18.2 % (15.0-51.0); MEAN CORPUSCULAR HEMOGLOBIN 26.5 pg (29.0-33.0); MEAN CORPUSCULAR HGB CONC 31.3 g/dl (32.0-37.0); MEAN CORPUSCULAR VOLUME 84.9 fl (82.0-101.0); MEAN PLATELET VOLUME 9.2 fl (7.4-10.4); MONOCYTE # 0.6 10^3/ul (0.3-0.9); MONOCYTES % 8.3 % (0.0-11.0); NEUTROPHIL # 4.9 10^3/ul (1.6-7.5); NEUTROPHILS % 65.4 % (39.0-77.0); PLATELET COUNT 271 10^3/UL (140-415); RED BLOOD COUNT 3.24 10^6/ul (4.70-6.10); RED CELL DISTRIBUTION WIDTH 16.8 % (11.5-14.5)
[2019-02-13 07:04] LABS: WHITE BLOOD COUNT 7.4 10^3/ul (4.8-10.8)
[2019-02-13 07:31] LABS: ALANINE AMINOTRANSFERASE 14 IU/L (13-69); ALBUMIN 3.9 g/dl (3.3-4.9); ALBUMIN/GLOBULIN RATIO 1.18; ALKALINE PHOSPHATASE 97 IU/L (42-121); ANION GAP 12 (5-13); ASPARTATE AMINO TRANSFERASE 22 IU/L (15-46); BILIRUBIN,INDIRECT 0.7 mg/dl (0-1.1); BILIRUBIN,TOTAL 0.7 mg/dl (0.2-1.3); BLOOD UREA NITROGEN 68 mg/dl (7-20); CARBON DIOXIDE 20 mmol/L (21-31); CHLORIDE 111 mmol/L (97-110); CREATINE KINASE 86 IU/L (23-200); CREATININE 2.82 mg/dl (0.61-1.24); Estimated GFR 23 mL/min (>60); GLUCOSE 134 mg/dl (70-220); SODIUM 143 mmol/L (135-144); TOTAL PROTEIN 7.2 g/dl (6.1-8.1)
[2019-02-13 07:41] LABS: CK INDEX 3.5
[2019-02-13 07:42] LABS: CK-MB 3.03 ng/ml (0.0-2.4)
[2019-02-13] MEDS: CLOPIDOGREL 75 MG TAB PO (08:14)
[2019-02-13] MEDS: ISOSORBIDE MONONITRATE(SR)60 MG TAB PO (08:14)
[2019-02-13] MEDS: PANTOPRAZOLE (EC) 40 MG TAB PO (08:14)
[2019-02-13] MEDS: INSULIN GLARGINE [LANTus] (100 UNITS/ML) SYG SC (08:32)
[2019-02-13] MEDS ORDERED: INSULIN GLARGINE [LANTus] (100 UNITS/ML) SYG SC (09:00)
[2019-02-13] MEDS: ASPIRIN 81 MG TAB PO (12:34)
[2019-02-13 13:45] LABS: HEMOGLOBIN A1C 7.4 % (0-5.9)
[2019-02-13] MEDS ORDERED: HEPARIN 1000 UNITS/ML 10 ML INJ IV ×2 (14:00→14:30)
[2019-02-13] MEDS: HEPARIN 25000 UNITS/250 ML 250 ML IV (15:43)
[2019-02-13] MEDS: hydrALAzine 20 MG INJ IV (20:58)
[2019-02-13] MEDS ORDERED: GLUCAGON 1 MG INJ IM (23:00)
[2019-02-13] MEDS ORDERED: DEXTROSE 50% 50 ML SYRINGE IV ×2 (23:00)
[2019-02-13] MEDS ORDERED: GLUCOSE GEL 15 GRAM TUBE PO ×2 (23:00)
[2019-02-13 23:04] LABS: PARTIAL THROMBOPLASTIN TIME 48.9 Sec (23.0-35.0)
[2019-02-14] MEDS: HEPARIN 25000 UNITS/250 ML 250 ML IV ×4 (00:47→21:45)
[2019-02-14] MEDS: ACCU-CHEK XX (02:00)
[2019-02-14 05:48] LABS: ADD MAN DIFF? NO
[2019-02-14 05:56] LABS: BASOPHIL # 0.1 10^3/ul (0.0-0.1); BASOPHILS % 1.8 % (0.0-2.0); EOSINOPHILS # 0.5 10^3/ul (0.0-0.5); EOSINOPHILS % 6.2 % (0.0-7.0); HEMOGLOBIN 9.1 g/dl (14.0-18.0); LYMPHOCYTES # 1.4 10^3/ul (0.8-2.9); LYMPHOCYTES % 18.2 % (15.0-51.0); MEAN CORPUSCULAR HEMOGLOBIN 27.2 pg (29.0-33.0); MEAN CORPUSCULAR HGB CONC 32.5 g/dl (32.0-37.0); MEAN CORPUSCULAR VOLUME 83.6 fl (82.0-101.0); MEAN PLATELET VOLUME 9.2 fl (7.4-10.4); MONOCYTE # 0.6 10^3/ul (0.3-0.9); MONOCYTES % 7.8 % (0.0-11.0); NEUTROPHIL # 4.9 10^3/ul (1.6-7.5); NEUTROPHILS % 65.7 % (39.0-77.0); PLATELET COUNT 299 10^3/UL (140-415); RED BLOOD COUNT 3.35 10^6/ul (4.70-6.10); RED CELL DISTRIBUTION WIDTH 16.4 % (11.5-14.5)
[2019-02-14 05:56] LABS: WHITE BLOOD COUNT 7.4 10^3/ul (4.8-10.8)
[2019-02-14] MEDS: BUMETANIDE 1 MG TAB PO ×2 (06:06→17:08)
[2019-02-14 06:28] LABS: ANION GAP 10 (5-13); BLOOD UREA NITROGEN 67 mg/dl (7-20); CALCIUM 9.1 mg/dl (8.4-10.2); CARBON DIOXIDE 21 mmol/L (21-31); CHLORIDE 110 mmol/L (97-110); CHOL/HDL RATIO 4.3 RATIO; CHOLESTEROL 130 mg/dl (100-200); CREATININE 2.92 mg/dl (0.61-1.24); Estimated GFR 22 mL/min (>60); GLUCOSE 122 mg/dl (70-220); HDL CHOLESTEROL 30 mg/dl (30-78); LDL CHOLESTEROL,CALCULATED 83 mg/dl; MAGNESIUM 2.3 mg/dl (1.7-2.5); POTASSIUM 5.2 mmol/L (3.5-5.1); SODIUM 141 mmol/L (135-144); TRIGLYCERIDES 86 mg/dl (0-149)
[2019-02-14] MEDS: INSULIN ASPART [NOVOLOG] 3 ML PEN SC ×4 (07:41→21:13)
[2019-02-14] MEDS: INSULIN GLARGINE [LANTus] (100 UNITS/ML) SYG SC (07:46)
[2019-02-14] MEDS: FERROUS SULFATE (EC) 325 MG TAB PO ×3 (08:12→21:03)
[2019-02-14] MEDS: ASPIRIN 81 MG TAB PO (08:12)
[2019-02-14] MEDS: CLOPIDOGREL 75 MG TAB PO (08:13)
[2019-02-14] MEDS: ISOSORBIDE MONONITRATE(SR)60 MG TAB PO (08:13)
[2019-02-14] MEDS: PANTOPRAZOLE (EC) 40 MG TAB PO (08:13)
[2019-02-14 08:58] LABS: PARTIAL THROMBOPLASTIN TIME 56.6 Sec (23.0-35.0)
[2019-02-14 16:34] LABS: PARTIAL THROMBOPLASTIN TIME 79.4 Sec (23.0-35.0)
[2019-02-14] MEDS: ATORVASTATIN 80 MG TAB PO (21:03)
[2019-02-14 23:49] LABS: PARTIAL THROMBOPLASTIN TIME 67.7 Sec (23.0-35.0)
[2019-02-15] MEDS: ACCU-CHEK XX (02:00)
[2019-02-15 05:53] LABS: ADD MAN DIFF? NO
[2019-02-15 05:55] LABS: WHITE BLOOD COUNT 6.6 10^3/ul (4.8-10.8)
[2019-02-15 05:55] LABS: BASOPHIL # 0.1 10^3/ul (0.0-0.1); BASOPHILS % 1.8 % (0.0-2.0); EOSINOPHILS # 0.4 10^3/ul (0.0-0.5); EOSINOPHILS % 6.1 % (0.0-7.0); HEMATOCRIT 29.4 % (42.0-52.0); HEMOGLOBIN 9.4 g/dl (14.0-18.0); LYMPHOCYTES # 1.4 10^3/ul (0.8-2.9); LYMPHOCYTES % 20.6 % (15.0-51.0); MEAN CORPUSCULAR HEMOGLOBIN 26.3 pg (29.0-33.0); MEAN CORPUSCULAR VOLUME 82.1 fl (82.0-101.0); MEAN PLATELET VOLUME 9.2 fl (7.4-10.4); MONOCYTE # 0.6 10^3/ul (0.3-0.9); MONOCYTES % 9.3 % (0.0-11.0); NEUTROPHIL # 4.1 10^3/ul (1.6-7.5); NEUTROPHILS % 61.9 % (39.0-77.0); PLATELET COUNT 307 10^3/UL (140-415); RED BLOOD COUNT 3.58 10^6/ul (4.70-6.10); RED CELL DISTRIBUTION WIDTH 16.3 % (11.5-14.5)
[2019-02-15] MEDS: BUMETANIDE 1 MG TAB PO ×2 (06:14→17:08)
[2019-02-15 06:23] LABS: ANION GAP 12 (5-13); BLOOD UREA NITROGEN 64 mg/dl (7-20); CALCIUM 9.2 mg/dl (8.4-10.2); CARBON DIOXIDE 23 mmol/L (21-31); CHLORIDE 106 mmol/L (97-110); CREATINE KINASE 44 IU/L (23-200); CREATININE 2.95 mg/dl (0.61-1.24); Estimated GFR 22 mL/min (>60); GLUCOSE 127 mg/dl (70-220); POTASSIUM 5.1 mmol/L (3.5-5.1); SODIUM 141 mmol/L (135-144)
[2019-02-15 06:24] LABS: PARTIAL THROMBOPLASTIN TIME 70.6 Sec (23.0-35.0)
[2019-02-15 06:30] LABS: CK INDEX 2.5
[2019-02-15 06:35] LABS: TROPONIN-I 0.853 ng/ml (0.000-0.120)
[2019-02-15] MEDS: HEPARIN 25000 UNITS/250 ML 250 ML IV ×2 (06:36→23:20)
[2019-02-15] MEDS: CLOPIDOGREL 75 MG TAB PO (08:16)
[2019-02-15] MEDS: FERROUS SULFATE (EC) 325 MG TAB PO ×3 (08:16→21:16)
[2019-02-15] MEDS: ASPIRIN 81 MG TAB PO (08:16)
[2019-02-15] MEDS: PANTOPRAZOLE (EC) 40 MG TAB PO (08:16)
[2019-02-15] MEDS: ISOSORBIDE MONONITRATE(SR)60 MG TAB PO (08:16)
[2019-02-15] MEDS: INSULIN GLARGINE [LANTus] (100 UNITS/ML) SYG SC (08:21)
[2019-02-15] MEDS: INSULIN ASPART [NOVOLOG] 3 ML PEN SC ×4 (08:21→21:56)
[2019-02-15 11:20] LABS: PARTIAL THROMBOPLASTIN TIME 67.6 Sec (23.0-35.0)
[2019-02-15] MEDS: ATORVASTATIN 80 MG TAB PO (21:11)
[2019-02-15 22:42] LABS: PARTIAL THROMBOPLASTIN TIME 63.5 Sec (23.0-35.0)
[2019-02-15] MEDS: SOD CHLORIDE 0.9% 1,000 ML IV (23:18)
[2019-02-16] MEDS: ACCU-CHEK XX (01:53)
[2019-02-16 05:47] LABS: ADD MAN DIFF? NO
[2019-02-16] MEDS: BUMETANIDE 1 MG TAB PO (05:50)
[2019-02-16 05:54] LABS: WHITE BLOOD COUNT 7.5 10^3/ul (4.8-10.8)
[2019-02-16 05:54] LABS: BASOPHIL # 0.1 10^3/ul (0.0-0.1); BASOPHILS % 1.5 % (0.0-2.0); EOSINOPHILS # 0.4 10^3/ul (0.0-0.5); EOSINOPHILS % 4.8 % (0.0-7.0); HEMATOCRIT 28.6 % (42.0-52.0); HEMOGLOBIN 9.4 g/dl (14.0-18.0); LYMPHOCYTES # 1.6 10^3/ul (0.8-2.9); LYMPHOCYTES % 20.8 % (15.0-51.0); MEAN CORPUSCULAR HEMOGLOBIN 27.2 pg (29.0-33.0); MEAN CORPUSCULAR HGB CONC 32.9 g/dl (32.0-37.0); MEAN CORPUSCULAR VOLUME 82.7 fl (82.0-101.0); MEAN PLATELET VOLUME 9.1 fl (7.4-10.4); MONOCYTE # 0.7 10^3/ul (0.3-0.9); MONOCYTES % 9.8 % (0.0-11.0); NEUTROPHIL # 4.7 10^3/ul (1.6-7.5); NEUTROPHILS % 62.8 % (39.0-77.0); PLATELET COUNT 291 10^3/UL (140-415); RED BLOOD COUNT 3.46 10^6/ul (4.70-6.10); RED CELL DISTRIBUTION WIDTH 16.3 % (11.5-14.5)
[2019-02-16] MEDS: HEPARIN 25000 UNITS/250 ML 250 ML IV ×3 (05:56→07:29)
[2019-02-16 06:17] LABS: PARTIAL THROMBOPLASTIN TIME 54.3 Sec (23.0-35.0)
[2019-02-16 06:33] LABS: ANION GAP 11 (5-13); BLOOD UREA NITROGEN 67 mg/dl (7-20); CALCIUM 8.9 mg/dl (8.4-10.2); CARBON DIOXIDE 24 mmol/L (21-31); CHLORIDE 105 mmol/L (97-110); CREATININE 2.98 mg/dl (0.61-1.24); Estimated GFR 21 mL/min (>60); GLUCOSE 157 mg/dl (70-220); POTASSIUM 4.6 mmol/L (3.5-5.1); SODIUM 140 mmol/L (135-144)
[2019-02-16] MEDS: ASPIRIN 81 MG TAB PO ×2 (07:45→11:38)
[2019-02-16] MEDS: ISOSORBIDE MONONITRATE(SR)60 MG TAB PO ×2 (07:45→11:38)
[2019-02-16] MEDS: INSULIN ASPART [NOVOLOG] 3 ML PEN SC ×4 (07:45→21:41)
[2019-02-16] MEDS: FERROUS SULFATE (EC) 325 MG TAB PO ×3 (07:45→20:50)
[2019-02-16] MEDS: SOD CHLORIDE 0.9% 1,000 ML IV ×5 (07:45→23:25)
[2019-02-16] MEDS: CLOPIDOGREL 75 MG TAB PO ×2 (07:45→11:38)
[2019-02-16] MEDS: PANTOPRAZOLE (EC) 40 MG TAB PO ×2 (07:45→11:39)
[2019-02-16] MEDS: INSULIN GLARGINE [LANTus] (100 UNITS/ML) SYG SC ×2 (07:46→11:54)
[2019-02-16] MEDS: DIAZEPAM 5 MG TAB PO (08:00)
[2019-02-16] MEDS: DIPHENHYDRAMINE 50 MG CAP PO (08:00)
[2019-02-16] MEDS ORDERED: NITROGLYCERIN (IC) 100 MCG/ML INJ (08:07)
[2019-02-16] MEDS ORDERED: HEPARIN 1000 UNITS/ML 10 ML INJ (08:07)
[2019-02-16] MEDS ORDERED: FENTAnyl 50 MCG/ML VIAL (08:07)
[2019-02-16] MEDS ORDERED: LIDOCAINE 1% (MDV) 20 ML INJ (08:07)
[2019-02-16] MEDS ORDERED: VERAPAMIL 5 MG INJ (08:07)
[2019-02-16] MEDS ORDERED: MIDAZOLAM 1 MG/ML 2 ML INJ (08:07)
[2019-02-16] MEDS ORDERED: IODIXANOL LOCM 100 ML BTL ×2 (08:07→09:44)
[2019-02-16] MEDS ORDERED: hydrALAzine 20 MG INJ (08:48)
[2019-02-16] MEDS ORDERED: ACETAMINOPHEN 325 MG TAB PO (09:30)
[2019-02-16] MEDS ORDERED: morphine 2 MG INJ IV (09:30)
[2019-02-16] MEDS ORDERED: AL HYDROX/MG HYDROX/SIMETH 30 ML CUP PO (09:30)
[2019-02-16] MEDS ORDERED: HEPARIN 25000 UNITS/250 ML 250 ML IV (11:24)
[2019-02-16 12:33] LABS: PARTIAL THROMBOPLASTIN TIME 63.4 Sec (23.0-35.0)
[2019-02-16] MEDS: OXYCODONE/ACETAMINOPHEN (5/325) TAB PO (20:50)
[2019-02-16] MEDS: ATORVASTATIN 80 MG TAB PO (20:50)
[2019-02-16] MEDS: hydrALAzine 20 MG INJ IV (21:01)
[2019-02-17] MEDS: ACCU-CHEK XX ×2 (02:31→21:34)
[2019-02-17 03:12] LABS: ADD MAN DIFF? NO
[2019-02-17 03:17] LABS: WHITE BLOOD COUNT 6.6 10^3/ul (4.8-10.8)
[2019-02-17 03:17] LABS: BASOPHIL # 0.1 10^3/ul (0.0-0.1); BASOPHILS % 1.7 % (0.0-2.0); EOSINOPHILS # 0.3 10^3/ul (0.0-0.5); EOSINOPHILS % 4.9 % (0.0-7.0); HEMATOCRIT 26.3 % (42.0-52.0); HEMOGLOBIN 8.4 g/dl (14.0-18.0); LYMPHOCYTES # 1.3 10^3/ul (0.8-2.9); LYMPHOCYTES % 20.2 % (15.0-51.0); MEAN CORPUSCULAR HEMOGLOBIN 26.7 pg (29.0-33.0); MEAN CORPUSCULAR HGB CONC 31.9 g/dl (32.0-37.0); MEAN CORPUSCULAR VOLUME 83.5 fl (82.0-101.0); MEAN PLATELET VOLUME 9.2 fl (7.4-10.4); MONOCYTE # 0.7 10^3/ul (0.3-0.9); MONOCYTES % 9.9 % (0.0-11.0); NEUTROPHIL # 4.2 10^3/ul (1.6-7.5); PLATELET COUNT 268 10^3/UL (140-415); RED BLOOD COUNT 3.15 10^6/ul (4.70-6.10); RED CELL DISTRIBUTION WIDTH 16.4 % (11.5-14.5)
[2019-02-17 03:35] LABS: ANION GAP 10 (5-13); BLOOD UREA NITROGEN 63 mg/dl (7-20); CALCIUM 8.8 mg/dl (8.4-10.2); CARBON DIOXIDE 22 mmol/L (21-31); CHLORIDE 107 mmol/L (97-110); CREATININE 2.92 mg/dl (0.61-1.24); Estimated GFR 22 mL/min (>60); GLUCOSE 157 mg/dl (70-220); POTASSIUM 4.4 mmol/L (3.5-5.1); SODIUM 139 mmol/L (135-144)
[2019-02-17 04:10] LABS: GLUCOSE 156 mg/dl (70-220)
[2019-02-17] MEDS: INSULIN ASPART [NOVOLOG] 3 ML PEN SC ×4 (07:59→21:00)
[2019-02-17] MEDS: FERROUS SULFATE (EC) 325 MG TAB PO ×3 (08:49→21:23)
[2019-02-17] MEDS: PANTOPRAZOLE (EC) 40 MG TAB PO (08:49)
[2019-02-17] MEDS: CLOPIDOGREL 75 MG TAB PO (08:49)
[2019-02-17] MEDS: ISOSORBIDE MONONITRATE(SR)60 MG TAB PO (08:49)
[2019-02-17] MEDS: INSULIN GLARGINE [LANTus] (100 UNITS/ML) SYG SC (09:17)
[2019-02-17] MEDS: ASPIRIN 81 MG TAB PO (10:51)
[2019-02-17] MEDS: SOD CHLORIDE 0.9% 1,000 ML IV (13:54)
[2019-02-17] MEDS: ATORVASTATIN 80 MG TAB PO (21:22)
[2019-02-18] MEDS: hydrALAzine 20 MG INJ IV
[2019-02-18] MEDS: SOD CHLORIDE 0.9% 1,000 ML IV (00:53)
[2019-02-18] MEDS: OXYCODONE/ACETAMINOPHEN (5/325) TAB PO (01:42)
[2019-02-18] MEDS: NITROGLYCERIN (SL) 0.4 MG TAB SL ×3 (01:47→23:18)
[2019-02-18 05:56] LABS: ADD MAN DIFF? NO
[2019-02-18 06:05] LABS: WHITE BLOOD COUNT 9.2 10^3/ul (4.8-10.8)
[2019-02-18 06:05] LABS: BASOPHIL # 0.1 10^3/ul (0.0-0.1); BASOPHILS % 1.1 % (0.0-2.0); EOSINOPHILS # 0.4 10^3/ul (0.0-0.5); EOSINOPHILS % 4.1 % (0.0-7.0); HEMATOCRIT 25.7 % (42.0-52.0); HEMOGLOBIN 8.1 g/dl (14.0-18.0); LYMPHOCYTES % 10.7 % (15.0-51.0); MEAN CORPUSCULAR HEMOGLOBIN 26.7 pg (29.0-33.0); MEAN CORPUSCULAR HGB CONC 31.5 g/dl (32.0-37.0); MEAN CORPUSCULAR VOLUME 84.8 fl (82.0-101.0); MEAN PLATELET VOLUME 9.3 fl (7.4-10.4); MONOCYTE # 0.8 10^3/ul (0.3-0.9); MONOCYTES % 8.5 % (0.0-11.0); NEUTROPHIL # 6.9 10^3/ul (1.6-7.5); NEUTROPHILS % 75.2 % (39.0-77.0); PLATELET COUNT 257 10^3/UL (140-415); RED BLOOD COUNT 3.03 10^6/ul (4.70-6.10); RED CELL DISTRIBUTION WIDTH 16.6 % (11.5-14.5)
[2019-02-18 06:37] LABS: ANION GAP 11 (5-13); BLOOD UREA NITROGEN 60 mg/dl (7-20); CALCIUM 8.8 mg/dl (8.4-10.2); CARBON DIOXIDE 18 mmol/L (21-31); CHLORIDE 110 mmol/L (97-110); CREATININE 3.01 mg/dl (0.61-1.24); Estimated GFR 21 mL/min (>60); GLUCOSE 126 mg/dl (70-220); POTASSIUM 4.5 mmol/L (3.5-5.1); SODIUM 139 mmol/L (135-144)
[2019-02-18] MEDS: INSULIN ASPART [NOVOLOG] 3 ML PEN SC ×4 (07:44→21:00)
[2019-02-18] MEDS: FERROUS SULFATE (EC) 325 MG TAB PO ×3 (08:16→21:02)
[2019-02-18] MEDS: PANTOPRAZOLE (EC) 40 MG TAB PO (08:16)
[2019-02-18] MEDS: ISOSORBIDE MONONITRATE(SR)60 MG TAB PO (08:17)
[2019-02-18] MEDS: ASPIRIN 81 MG TAB PO (08:17)
[2019-02-18] MEDS: CLOPIDOGREL 75 MG TAB PO (08:17)
[2019-02-18] MEDS: INSULIN GLARGINE [LANTus] (100 UNITS/ML) SYG SC (08:24)
[2019-02-18 08:53] LABS: TROPONIN-I 0.249 ng/ml (0.000-0.120)
[2019-02-18] MEDS: GUAIFENESIN 20 MG/ML 5ML CUP PO (21:00)
[2019-02-18] MEDS: ATORVASTATIN 80 MG TAB PO (21:02)
[2019-02-18] MEDS: ACCU-CHEK XX (21:11)
[2019-02-18] MEDS ORDERED: SOD CHLORIDE 0.9% 1,000 ML IV (22:00)
[2019-02-18] MEDS: FUROSEMIDE 20 MG INJ IV (23:38)
[2019-02-19] MEDS: ALBUTEROL/IPRATROPIUM (NEB) 3 ML AMP HHN (00:04)
[2019-02-19] MEDS: NITROGLYCERIN (SL) 0.4 MG TAB SL (01:08)
[2019-02-19] MEDS: ONDANSETRON 4 MG INJ IV (01:15)
[2019-02-19] MEDS: GUAIFENESIN 20 MG/ML 5ML CUP PO ×2 (01:15→05:43)
[2019-02-19 05:44] LABS: ADD MAN DIFF? NO
[2019-02-19 05:49] LABS: BASOPHIL # 0.1 10^3/ul (0.0-0.1); EOSINOPHILS # 0.1 10^3/ul (0.0-0.5); EOSINOPHILS % 0.8 % (0.0-7.0); HEMATOCRIT 27.7 % (42.0-52.0); HEMOGLOBIN 8.6 g/dl (14.0-18.0); LYMPHOCYTES # 0.8 10^3/ul (0.8-2.9); LYMPHOCYTES % 7.7 % (15.0-51.0); MEAN CORPUSCULAR HEMOGLOBIN 26.5 pg (29.0-33.0); MEAN CORPUSCULAR VOLUME 85.2 fl (82.0-101.0); MEAN PLATELET VOLUME 9.2 fl (7.4-10.4); MONOCYTE # 0.6 10^3/ul (0.3-0.9); NEUTROPHIL # 8.8 10^3/ul (1.6-7.5); NEUTROPHILS % 84.2 % (39.0-77.0); PLATELET COUNT 266 10^3/UL (140-415); RED BLOOD COUNT 3.25 10^6/ul (4.70-6.10)
[2019-02-19 05:49] LABS: WHITE BLOOD COUNT 10.5 10^3/ul (4.8-10.8)
[2019-02-19 06:13] LABS: ALANINE AMINOTRANSFERASE 16 IU/L (13-69); ALBUMIN 3.5 g/dl (3.3-4.9); ALBUMIN/GLOBULIN RATIO 1.16; ALKALINE PHOSPHATASE 68 IU/L (42-121); ANION GAP 11 (5-13); ASPARTATE AMINO TRANSFERASE 22 IU/L (15-46); BILIRUBIN,INDIRECT 0.9 mg/dl (0-1.1); BILIRUBIN,TOTAL 0.9 mg/dl (0.2-1.3); BLOOD UREA NITROGEN 59 mg/dl (7-20); CARBON DIOXIDE 18 mmol/L (21-31); CHLORIDE 113 mmol/L (97-110); CREATININE 3.13 mg/dl (0.61-1.24); Estimated GFR 20 mL/min (>60); GLUCOSE 118 mg/dl (70-220); POTASSIUM 5.9 mmol/L (3.5-5.1); SODIUM 142 mmol/L (135-144); TOTAL PROTEIN 6.5 g/dl (6.1-8.1)
[2019-02-19 06:16] LABS: MAGNESIUM 2.1 mg/dl (1.7-2.5)
[2019-02-19 06:56] LABS: IRON 16 ug/dl (35-150)
[2019-02-19] MEDS: BIVALIRUDIN 250MG /NS 50 ML 50 ML IVPB (07:00)
[2019-02-19 07:05] LABS: % IRON SATURATION 6 % SAT (22-52); TOTAL IRON BINDING CAPACITY 289 ug/dl (241-421)
[2019-02-19] MEDS: INSULIN ASPART [NOVOLOG] 3 ML PEN SC ×4 (08:00→21:00)
[2019-02-19] MEDS: CLOPIDOGREL 75 MG TAB PO (08:19)
[2019-02-19] MEDS: ISOSORBIDE MONONITRATE(SR)60 MG TAB PO (08:19)
[2019-02-19] MEDS: ASPIRIN 81 MG TAB PO (08:19)
[2019-02-19] MEDS: FERROUS SULFATE (EC) 325 MG TAB PO ×3 (08:19→22:04)
[2019-02-19] MEDS: PANTOPRAZOLE (EC) 40 MG TAB PO (08:20)
[2019-02-19] MEDS: INSULIN GLARGINE [LANTus] (100 UNITS/ML) SYG SC (08:34)
[2019-02-19] MEDS: CITRIC ACID/NA CITRATE 30 ML CUP PO ×3 (09:14→22:05)
[2019-02-19] MEDS: NA POLYST SULFON 15 GM/60 ML BTL PO (09:14)
[2019-02-19] MEDS: BUMETANIDE 1 MG INJ IV ×2 (09:14→17:12)
[2019-02-19 13:00] LABS: ANION GAP 11 (5-13); BLOOD UREA NITROGEN 61 mg/dl (7-20); CALCIUM 9.3 mg/dl (8.4-10.2); CARBON DIOXIDE 20 mmol/L (21-31); CHLORIDE 112 mmol/L (97-110); CREATININE 3.55 mg/dl (0.61-1.24); Estimated GFR 17 mL/min (>60); GLUCOSE 121 mg/dl (70-220); POTASSIUM 4.9 mmol/L (3.5-5.1); SODIUM 143 mmol/L (135-144)
[2019-02-19 18:57] LABS: FERRITIN 85.1 ng/ml (11.1-264.0)
[2019-02-19] MEDS: ATORVASTATIN 80 MG TAB PO (22:04)
[2019-02-20] MEDS: ACCU-CHEK XX ×2 (02:00→20:45)
[2019-02-20] MEDS: BUMETANIDE 1 MG INJ IV (06:08)
[2019-02-20] MEDS: CITRIC ACID/NA CITRATE 30 ML CUP PO (06:08)
[2019-02-20] MEDS: ASPIRIN 81 MG TAB PO (07:41)
[2019-02-20] MEDS: PANTOPRAZOLE (EC) 40 MG TAB PO (07:42)
[2019-02-20] MEDS: CLOPIDOGREL 75 MG TAB PO (07:42)
[2019-02-20] MEDS: FERROUS SULFATE (EC) 325 MG TAB PO ×3 (07:42→20:38)
[2019-02-20] MEDS: ISOSORBIDE MONONITRATE(SR)60 MG TAB PO (07:42)
[2019-02-20] MEDS: INSULIN ASPART [NOVOLOG] 3 ML PEN SC ×4 (07:43→20:44)
[2019-02-20] MEDS: INSULIN GLARGINE [LANTus] (100 UNITS/ML) SYG SC (08:03)
[2019-02-20] MEDS: NIFEdipine 10 MG CAP PO ×3 (09:02→16:58)
[2019-02-20 09:28] LABS: ADD MAN DIFF? NO
[2019-02-20 09:32] LABS: WHITE BLOOD COUNT 7.5 10^3/ul (4.8-10.8)
[2019-02-20 09:32] LABS: BASOPHIL # 0.1 10^3/ul (0.0-0.1); BASOPHILS % 1.2 % (0.0-2.0); EOSINOPHILS # 0.3 10^3/ul (0.0-0.5); EOSINOPHILS % 4.4 % (0.0-7.0); HEMATOCRIT 23.6 % (42.0-52.0); HEMOGLOBIN 7.4 g/dl (14.0-18.0); LYMPHOCYTES # 0.9 10^3/ul (0.8-2.9); LYMPHOCYTES % 12.2 % (15.0-51.0); MEAN CORPUSCULAR HEMOGLOBIN 26.8 pg (29.0-33.0); MEAN CORPUSCULAR HGB CONC 31.4 g/dl (32.0-37.0); MEAN CORPUSCULAR VOLUME 85.5 fl (82.0-101.0); MEAN PLATELET VOLUME 8.9 fl (7.4-10.4); MONOCYTE # 0.7 10^3/ul (0.3-0.9); MONOCYTES % 9.9 % (0.0-11.0); NEUTROPHIL # 5.4 10^3/ul (1.6-7.5); NEUTROPHILS % 71.8 % (39.0-77.0); PLATELET COUNT 221 10^3/UL (140-415); RED BLOOD COUNT 2.76 10^6/ul (4.70-6.10); RED CELL DISTRIBUTION WIDTH 16.4 % (11.5-14.5)
[2019-02-20 09:47] LABS: ALANINE AMINOTRANSFERASE 19 IU/L (13-69); ALBUMIN 3.1 g/dl (3.3-4.9); ALBUMIN/GLOBULIN RATIO 1.06; ALKALINE PHOSPHATASE 63 IU/L (42-121); ANION GAP 9 (5-13); ASPARTATE AMINO TRANSFERASE 19 IU/L (15-46); BILIRUBIN,INDIRECT 0.8 mg/dl (0-1.1); BILIRUBIN,TOTAL 0.8 mg/dl (0.2-1.3); BLOOD UREA NITROGEN 62 mg/dl (7-20); CALCIUM 8.7 mg/dl (8.4-10.2); CARBON DIOXIDE 26 mmol/L (21-31); CHLORIDE 109 mmol/L (97-110); CREATININE 3.36 mg/dl (0.61-1.24); Estimated GFR 19 mL/min (>60); GLUCOSE 118 mg/dl (70-220); PHOSPHORUS 5.5 mg/dl (2.5-4.9); POTASSIUM 4.1 mmol/L (3.5-5.1); SODIUM 144 mmol/L (135-144)
[2019-02-20] MEDS: ATORVASTATIN 80 MG TAB PO (20:39)
[2019-02-21] MEDS: NIFEdipine 10 MG CAP PO ×4 (00:43→17:07)
[2019-02-21 06:11] LABS: ADD MAN DIFF? NO
[2019-02-21 06:16] LABS: WHITE BLOOD COUNT 7.5 10^3/ul (4.8-10.8)
[2019-02-21 06:16] LABS: BASOPHIL # 0.1 10^3/ul (0.0-0.1); BASOPHILS % 1.3 % (0.0-2.0); EOSINOPHILS # 0.4 10^3/ul (0.0-0.5); EOSINOPHILS % 5.3 % (0.0-7.0); HEMATOCRIT 23.2 % (42.0-52.0); HEMOGLOBIN 7.3 g/dl (14.0-18.0); LYMPHOCYTES # 1.1 10^3/ul (0.8-2.9); LYMPHOCYTES % 14.7 % (15.0-51.0); MEAN CORPUSCULAR HEMOGLOBIN 26.5 pg (29.0-33.0); MEAN CORPUSCULAR HGB CONC 31.5 g/dl (32.0-37.0); MEAN CORPUSCULAR VOLUME 84.4 fl (82.0-101.0); MEAN PLATELET VOLUME 9.4 fl (7.4-10.4); MONOCYTE # 0.8 10^3/ul (0.3-0.9); MONOCYTES % 10.9 % (0.0-11.0); NEUTROPHIL # 5.1 10^3/ul (1.6-7.5); NEUTROPHILS % 67.5 % (39.0-77.0); PLATELET COUNT 239 10^3/UL (140-415); RED BLOOD COUNT 2.75 10^6/ul (4.70-6.10); RED CELL DISTRIBUTION WIDTH 16.3 % (11.5-14.5)
[2019-02-21 06:52] LABS: ANION GAP 11 (5-13); BLOOD UREA NITROGEN 65 mg/dl (7-20); CALCIUM 8.6 mg/dl (8.4-10.2); CARBON DIOXIDE 24 mmol/L (21-31); CHLORIDE 105 mmol/L (97-110); CREATININE 3.98 mg/dl (0.61-1.24); Estimated GFR 15 mL/min (>60); GLUCOSE 82 mg/dl (70-220); PHOSPHORUS 5.8 mg/dl (2.5-4.9); POTASSIUM 3.8 mmol/L (3.5-5.1); SODIUM 140 mmol/L (135-144)
[2019-02-21] MEDS: INSULIN ASPART [NOVOLOG] 3 ML PEN SC ×4 (08:00→21:00)
[2019-02-21] MEDS: FERROUS SULFATE (EC) 325 MG TAB PO ×3 (08:48→21:31)
[2019-02-21] MEDS: CLOPIDOGREL 75 MG TAB PO (08:48)
[2019-02-21] MEDS: ISOSORBIDE MONONITRATE(SR)60 MG TAB PO (08:48)
[2019-02-21] MEDS: ASPIRIN 81 MG TAB PO (08:48)
[2019-02-21] MEDS: INSULIN GLARGINE [LANTus] (100 UNITS/ML) SYG SC (08:54)
[2019-02-21] MEDS: SOD CHLORIDE 0.9% 250 ML IV (09:00)
[2019-02-21] MEDS: SOD FERRIC GLUC COMPLX 125 MG in SOD CHLORIDE 0.9% 100 ML IVPB (14:59)
[2019-02-21 15:56] LABS: ADD UMIC YES; UR ASCORBIC ACID NEGATIVE (NEGATIVE); UR BILIRUBIN (Dip) NEGATIVE (NEGATIVE); UR BLOOD (Dip) NEGATIVE (NEGATIVE); UR CLARITY CLEAR (CLEAR); UR COLOR YELLOW (YELLOW); UR GLUCOSE (Dip) NEGATIVE (NEGATIVE); UR KETONES (Dip) NEGATIVE (NEGATIVE); UR LEUKOCYTE ESTERASE (Dip) NEGATIVE Leu/ul (NEGATIVE); UR NITRITE (Dip) NEGATIVE (NEGATIVE); UR RBC 2 /HPF (0-5); UR SPECIFIC GRAVITY (Dip) 1.015 (1.003-1.030); UR TOTAL PROTEIN (Dip) 1+ mg/dl (NEGATIVE); UR UROBILINOGEN (Dip) NEGATIVE (NEGATIVE); UR WBC 1 /HPF (0-5)
[2019-02-21 16:10] LABS: SODIUM,URINE RANDOM 47 mmol/L (30-90)
[2019-02-21 16:10] LABS: CREATININE,URINE RANDOM 145.75 mg/dl (20-370)
[2019-02-21] MEDS: ATORVASTATIN 80 MG TAB PO (21:31)
[2019-02-21] MEDS: ACCU-CHEK XX (21:41)
[2019-02-22] MEDS: NIFEdipine 10 MG CAP PO ×2 (00:57→05:44)
[2019-02-22 05:59] LABS: ADD MAN DIFF? NO
[2019-02-22 06:05] LABS: BASOPHIL # 0.1 10^3/ul (0.0-0.1); BASOPHILS % 1.5 % (0.0-2.0); EOSINOPHILS # 0.3 10^3/ul (0.0-0.5); EOSINOPHILS % 3.9 % (0.0-7.0); HEMATOCRIT 24.3 % (42.0-52.0); HEMOGLOBIN 7.8 g/dl (14.0-18.0); LYMPHOCYTES # 0.8 10^3/ul (0.8-2.9); LYMPHOCYTES % 10.3 % (15.0-51.0); MEAN CORPUSCULAR HGB CONC 32.1 g/dl (32.0-37.0); MEAN CORPUSCULAR VOLUME 84.1 fl (82.0-101.0); MEAN PLATELET VOLUME 9.3 fl (7.4-10.4); MONOCYTE # 0.7 10^3/ul (0.3-0.9); MONOCYTES % 8.7 % (0.0-11.0); NEUTROPHILS % 75.2 % (39.0-77.0); PLATELET COUNT 254 10^3/UL (140-415); RED BLOOD COUNT 2.89 10^6/ul (4.70-6.10); RED CELL DISTRIBUTION WIDTH 15.7 % (11.5-14.5)
[2019-02-22 06:19] LABS: ANION GAP 12 (5-13); BLOOD UREA NITROGEN 62 mg/dl (7-20); CALCIUM 8.6 mg/dl (8.4-10.2); CARBON DIOXIDE 22 mmol/L (21-31); CHLORIDE 108 mmol/L (97-110); CREATININE 3.54 mg/dl (0.61-1.24); Estimated GFR 17 mL/min (>60); GLUCOSE 89 mg/dl (70-220); PHOSPHORUS 5.1 mg/dl (2.5-4.9); POTASSIUM 3.9 mmol/L (3.5-5.1); SODIUM 142 mmol/L (135-144)
[2019-02-22] MEDS: INSULIN ASPART [NOVOLOG] 3 ML PEN SC ×4 (08:00→21:00)
[2019-02-22] MEDS: FERROUS SULFATE (EC) 325 MG TAB PO ×3 (08:26→21:03)
[2019-02-22] MEDS: ISOSORBIDE MONONITRATE(SR)60 MG TAB PO (08:26)
[2019-02-22] MEDS: CLOPIDOGREL 75 MG TAB PO (08:26)
[2019-02-22] MEDS: ASPIRIN 81 MG TAB PO (08:28)
[2019-02-22] MEDS: INSULIN GLARGINE [LANTus] (100 UNITS/ML) SYG SC (08:45)
[2019-02-22] MEDS: ONDANSETRON 4 MG INJ IV (09:03)
[2019-02-22] MEDS: SOD FERRIC GLUC COMPLX 125 MG in SOD CHLORIDE 0.9% 100 ML IVPB (12:15)
[2019-02-22] MEDS: ATORVASTATIN 80 MG TAB PO (21:02)
[2019-02-22] MEDS: NIFEdipine (XL) 30 MG TAB PO (21:02)
[2019-02-23] MEDS: ACCU-CHEK XX (02:00)
[2019-02-23 05:35] LABS: ADD MAN DIFF? NO
[2019-02-23 05:43] LABS: BASOPHIL # 0.2 10^3/ul (0.0-0.1); BASOPHILS % 1.8 % (0.0-2.0); EOSINOPHILS # 0.4 10^3/ul (0.0-0.5); EOSINOPHILS % 4.1 % (0.0-7.0); HEMATOCRIT 24.2 % (42.0-52.0); HEMOGLOBIN 7.8 g/dl (14.0-18.0); LYMPHOCYTES % 11.3 % (15.0-51.0); MEAN CORPUSCULAR HEMOGLOBIN 27.1 pg (29.0-33.0); MEAN CORPUSCULAR HGB CONC 32.2 g/dl (32.0-37.0); MEAN PLATELET VOLUME 9.4 fl (7.4-10.4); MONOCYTE # 0.8 10^3/ul (0.3-0.9); MONOCYTES % 8.9 % (0.0-11.0); NEUTROPHIL # 6.6 10^3/ul (1.6-7.5); NEUTROPHILS % 73.5 % (39.0-77.0); PLATELET COUNT 281 10^3/UL (140-415); RED BLOOD COUNT 2.88 10^6/ul (4.70-6.10); RED CELL DISTRIBUTION WIDTH 15.9 % (11.5-14.5)
[2019-02-23 06:35] LABS: ANION GAP 11 (5-13); BLOOD UREA NITROGEN 58 mg/dl (7-20); CALCIUM 8.8 mg/dl (8.4-10.2); CARBON DIOXIDE 22 mmol/L (21-31); CHLORIDE 109 mmol/L (97-110); CREATININE 3.21 mg/dl (0.61-1.24); Estimated GFR 20 mL/min (>60); GLUCOSE 52 mg/dl (70-220); MAGNESIUM 2.1 mg/dl (1.7-2.5); PHOSPHORUS 4.8 mg/dl (2.5-4.9); POTASSIUM 4.1 mmol/L (3.5-5.1); SODIUM 142 mmol/L (135-144)
[2019-02-23] MEDS: GLUCOSE GEL 15 GRAM TUBE BUCCAL (07:51)
[2019-02-23] MEDS: INSULIN ASPART [NOVOLOG] 3 ML PEN SC ×2 (07:52→12:22)
[2019-02-23] MEDS: INSULIN GLARGINE [LANTus] (100 UNITS/ML) SYG SC (09:00)
[2019-02-23] MEDS: NIFEdipine (XL) 30 MG TAB PO (11:08)
[2019-02-23] MEDS: CLOPIDOGREL 75 MG TAB PO (11:09)
[2019-02-23] MEDS: FERROUS SULFATE (EC) 325 MG TAB PO (11:09)
[2019-02-23] MEDS: ASPIRIN 81 MG TAB PO (11:09)
[2019-02-23] MEDS: ISOSORBIDE MONONITRATE(SR)60 MG TAB PO (11:09)
[2019-02-23] MEDS: SOD FERRIC GLUC COMPLX 125 MG in SOD CHLORIDE 0.9% 100 ML IVPB (13:00)
== END 2019-02-23 13:58 | disposition home or self-care (01) | DRG 280 ==
LOC: E/R 18:22 → 6WM 19:55
PROC: 4A023N7 Measurement of Cardiac Sampling and Pressure, Left Heart, Percutaneous Approach (ICD-10-PCS; principal; 2019-02-16 07:57)
PROC: B211YZZ Fluoroscopy of Multiple Coronary Arteries using Other Contrast (ICD-10-PCS; 2019-02-16 07:57)
DX: I21.4 Non-ST elevation (NSTEMI) myocardial infarction (principal); I50.23 Acute on chronic systolic (congestive) heart failure; I13.0 Hypertensive heart and chronic kidney disease with heart failure and stage 1 through stage 4 chronic kidney disease, or unspecified chronic kidney disease; N17.9 Acute kidney failure, unspecified; N18.9 Chronic kidney disease, unspecified; E11.22 Type 2 diabetes mellitus with diabetic chronic kidney disease; I16.0 Hypertensive urgency; I25.10 Atherosclerotic heart disease of native coronary artery without angina pectoris; I25.5 Ischemic cardiomyopathy; D50.9 Iron deficiency anemia, unspecified; E87.5 Hyperkalemia; Z95.5 Presence of coronary angioplasty implant and graft; Z79.4 Long term (current) use of insulin
CPT/HCPCS: 36415; 71045; 80048; 80053; 80061; 81001; 82550; 82553; 82728; 82947; 82962; 83036; 83540; 83735; 84100; 84155; 84300; 84484; 85025; 85730; 89190; 93005; 93458; 94664; 97161; 99285-25